=== PATIENT | female | born 1975 | race Caucasian/White ===

== ENCOUNTER → 2017-10-03 08:16 | Outpatient (CLI) | payer OTHER, SELFPAY ==
--- NOTE | 2017-10-03 08:29 | XR_ITS ---
XR shoulder RT min 2V HISTORY: Posttraumatic pain ITS.REASON: RT SHOULDER PAIN ORDERING PHYSICIAN: Meliza Liriano PATIENT AGE: 42 years COMPARISON: None FINDINGS: No fracture or dislocation. No lytic or blastic change. There is normal mineralization. The joint spaces are well-preserved. No significant degenerative/arthritic changes. No erosive changes evident. IMPRESSION: Negative, no acute finding
== END ==
PROVIDERS: PCP Family Medicine; Visit Provider Nurse Practitioner Family
DX: M25.511 Pain in right shoulder (principal)
CPT/HCPCS: 73030

== ENCOUNTER 2017-10-04 16:00 | Outpatient (RCR) | payer OTHER, SELFPAY | END 2017-10-11 15:36 | disposition home or self-care (01) | LOC: PT 16:00 | PROVIDERS: Family Provider Family Medicine; PCP Family Medicine; Visit Provider Nurse Practitioner Family | DX: M25.511 Pain in right shoulder (principal) | CPT/HCPCS: 97110 ==

== ENCOUNTER → 2018-01-24 13:11 | Outpatient (CLI) | payer OTHER, SELFPAY ==
--- NOTE | 2018-01-24 13:22 | CT_ITS ---
CT abdomen pelvis wo con CLINICAL INDICATION: ITS.REASON: FLANK PAIN,RENAL COLIC ORDERING PHYSICIAN: Meliza Liriano PATIENT AGE: 43 years COMPARISON: None TECHNIQUE: Axial images obtained with sagittal and coronal reformats. All CT scans at the facility use one or more dose reduction, viz: automated exposure control; ma/kV adjustment per patient size (including targeted exams where dose is matched to indication; i.e. head); or iterative reconstruction technique. PROCEDURE: Oral Contrast: None IV Contrast: None . FINDINGS: Lung bases are clear. There are multiple isodense hepatic lesions the largest is in the right hepatic lobe at segment 7 laterally measuring 3.2 x 2.6 cm. This lesion has a small area of slight increased density anteriorly. There is an additional smaller lesion at 2.8 cm in the central aspect of the left hepatic lobe at segment 4A. An additional 13 mm isodense is present more superior to this at the hepatic dome. A 9 mm isodense is present in segment 1 and one also in segment IVb at 11 mm. These are nonspecific and could be related to multiple benign lesions or metastatic disease. Suggest follow-up liver CT with hemangioma protocol. The spleen, adrenal glands, and pancreas have an unremarkable unenhanced CT appearance. No renal or ureteral calculi. No hydronephrosis. Isodense is present involving the posterior aspect of the right kidney and may be due to small cyst. Reported prior appendectomy. Prior hysterectomy. No pelvic mass or abnormal fluid collection or focal inflammatory change evident. No evidence of diverticulitis. There are mild degenerative changes of the hips. IMPRESSION: 1. No acute abdominal or pelvic findings. 2. No renal or ureteral calculi. No hydronephrosis 3. Multiple liver lesions as described above. Suggest further characterization with CT with hemangioma protocol.
== END ==
PROVIDERS: PCP Nurse Practitioner Family; Visit Provider Nurse Practitioner Family
DX: N23 Unspecified renal colic (principal)
CPT/HCPCS: 74176

== ENCOUNTER → 2018-02-01 08:17 | Outpatient (CLI) | payer OTHER, SELFPAY ==
--- NOTE | 2018-02-01 08:23 | CT_ITS ---
CT abdomen w con CLINICAL INDICATION: Follow-up liver lesions ITS.REASON: LIVER MASS ORDERING PHYSICIAN: Meliza Liriano PATIENT AGE: 43 years COMPARISON: 01/24/2018 TECHNIQUE: Hemangioma protocol. 30 seconds, 60 seconds, 5 minute, 10 minute delayed images obtained with contrast Axial images obtained with sagittal and coronal reformats. All CT scans at the facility use one or more dose reduction, viz: automated exposure control; ma/kV adjustment per patient size (including targeted exams where dose is matched to indication; i.e. head); or iterative reconstruction technique. PROCEDURE: Oral Contrast: None IV Contrast: 75 mL's Isovue-370. FINDINGS: Multiple liver lesions are once again noted. There are at least 4 lesions appear one in the hepatic dome centrally at 13 mm. A second lesion is in the lateral aspect of lateral segment left hepatic lobe at 16 mm. A third lesion is present in the central aspect of the liver in the portal area at 2.2 x 1.8 cm. The largest lesion is in the posterior segment of the right hepatic lobe at 2.8 cm. These lesions all demonstrate isointensity on the arterial phase images and are slightly hypointense to the liver on the subsequent portal phase and delayed images. They do not demonstrate typical appearance of hemangiomas.. There is mild enlargement of the right adrenal gland measuring 17 mm and may be due to an adenoma. The spleen, left adrenal gland, pancreas, and kidneys have an unremarkable appearance. IMPRESSION: Multiple hepatic lesions as described above. These do not demonstrate typical enhancement pattern for hemangiomas. Differential diagnosis therefore includes hepatic metastasis, multifocal hepatocellular carcinoma, focal nodular hyperplasia, and hepatic adenomas. Does the patient have a history of primary malignancy? Does the patient have older CTs at another institution? MRI of the liver may provide further evaluation. Fine-needle aspiration ultimately may be needed for definitive diagnosis.
--- NOTE | 2018-02-01 08:24 | XR_ITS ---
XR chest 2V HISTORY: Smoker, liver lesion ITS.REASON: TOBACCO USE ORDERING PHYSICIAN: Meliza Liriano PATIENT AGE: 43 years COMPARISON: None FINDINGS: The cardiomediastinal silhouette and pulmonary vascularity are within normal limits. The lungs are clear without infiltrates, suspicious nodules, or pleural effusions. There is calcified granuloma in the left mid to lower lung zone No acute bony abnormalities. IMPRESSION: Old granulomatous disease, no acute finding
== END ==
PROVIDERS: Family Provider Family Medicine; PCP Nurse Practitioner Family; Visit Provider Nurse Practitioner Family
DX: D37.6 Neoplasm of uncertain behavior of liver, gallbladder and bile ducts (principal)
CPT/HCPCS: 71046; 74160; Q9967

== ENCOUNTER → 2018-02-23 08:06 | Outpatient (CLI) | payer OTHER, SELFPAY ==
--- NOTE | 2018-02-23 08:30 | MM_ITS ---
MM Dig screening mamm BI w/CAD CAD Screening COMPARISON: Digital mammograms with CAD 02/18/2015 and 12/30/2016 INDICATION: Is a history of breast cancer patient maternal grandmother and maternal aunt both diagnosed after menopause TECHNIQUE: Standard CC and MLO images were obtained. R2 CAD reviewed. FINDINGS: Moderate diffuse fibro-glandular densities are seen in both breasts. Findings of the lateral symmetrical. There is no suspicious lesion and there are no suspicious microcalcifications. IMPRESSION: Fibrofatty parenchyma no suspicious lesion seen BI-RADS Category: 1 Negative RECOMMENDED FOLLOW-UP: 1YR - 1 YEAR FOLLOW-UP (A letter has been sent to the patient regarding results of the study.)
== END ==
PROVIDERS: Family Provider Family Medicine; PCP Nurse Practitioner Family; Visit Provider Nurse Practitioner Family
DX: Z12.31 Encounter for screening mammogram for malignant neoplasm of breast (principal)
CPT/HCPCS: 77067

== ENCOUNTER → 2020-04-06 12:55 | Outpatient (CLI) | payer OTHER, MEDICAID, SELFPAY ==
--- NOTE | 2020-04-06 13:03 | MM_ITS ---
PROCEDURE: MM DIG SCREENING MAMM BI W/CAD Digital Breast Tomosynthesis Included CLINICAL INDICATION: SCREENING There is a history of breast cancer patient's maternal aunt and maternal grandmother both diagnosed after menopause. There has been a previous biopsy left breast for benign disease. COMPARISON: MG [facility]B DIG MAMM-SCREEN KAREN from 02/18/2015 MG DMSB DIG MAMM-SCREEN KAREN W/CAD from 12/30/2016 MG [facility] MM Dig screening mamm BI w/CAD from 02/23/2018 TECHNIQUE: Standard CC and MLO images and 3D Tomosynthesis was obtained. R2 CAD reviewed. FINDINGS: Moderate scattered fibroglandular densities are seen in both breast centrally and upper outer quadrants. There is a benign-appearing microcalcification right breast and a biopsy clip left breast. There is no suspicious lesion in either breast and no suspicious microcalcifications. IMPRESSION: Stable exam with fibrofatty parenchyma and no suspicious lesions seen BI-RAD Category: 2 Benign Finding(s) FOLLOW-UP: 1YR 1 Year Follow-up (A letter has been sent to the patient regarding results of the study.) Dictated Dr. Kahlil Mcclellan MD 04/07/2020 10:27 Dr. Kahlil Contreras MD in [place] 04/07/2020 10:27
== END ==
PROVIDERS: PCP Nurse Practitioner Family; Visit Provider Nurse Practitioner Family
DX: Z12.31 Encounter for screening mammogram for malignant neoplasm of breast (principal)
CPT/HCPCS: 77063; 77067

== ENCOUNTER → 2021-03-10 14:53 | Outpatient (CLI) | payer OTHER, SELFPAY | PROVIDERS: Visit Provider Internal Medicine Gastroenterology | DX: Z20.822 Contact with and (suspected) exposure to COVID-19 (principal) | CPT/HCPCS: U0003 ==

== ENCOUNTER 2021-03-12 09:50 | Day surgery (SDC) | payer OTHER, SELFPAY ==
[2021-03-09 08:32] VITALS: BMI 33.9
[2021-03-12 10:24] VITALS: BP 112/68; PULSE 91; RESP 16; TEMP 36.7; O2SAT 98
--- NOTE | 2021-03-12 11:24 | P.PN_ITS ---
[facility] Anesthesia Checklist - Patient Identification Patient Identification: Arm Band - Structural Data Admitted From: Home Planned Operative Procedure/s: colonoscopy Consent for Planned Operative Procedure(s) Verified: Yes Verified Documents: Surgical Consent, History and Physical - NPO Status Verified Time NPO: 00:00 - Additional verifications Anesthesia Reactions: No - Airway Assessment C-Spine Mobility Assessed: Yes (mp2) TMJ Mobility Assessed: Yes Dentition: Good Dentition - Neurological Assessment Level of Consciousness: Awake, Alert - Anesthesia Plan Anesthesia Risk discussed: Yes Anesthesia Plan: Verified ASA Class: III Anesthesia Type: MAC [facility] History I have reviewed the patient's past medical history: Yes Medical History: Reports:: Lung Disease (lore) Denies:: Cancer, Diabetes Mellitus Type 1, Diabetes Mellitus Type 2, MRSA, Seizures *Have you ever received a pneumonia vaccine?: No *Have you received a flu vaccine this season?: Yes Other Medical History: Reports: Hypothyroidism, Liver Disease, Other Anesthesia experience/problems:: nac Other Surgeries: Yes: Other Amputation: No Fractures: No - *Social History Last grade of school completed: High school graduate Smoking Status: Current every day smoker Tobacco Type: cigarettes # Packs/Day (cigarettes): 2 Alcohol Intake: current Alcohol Intake Frequency:: holidays/special occasions only Substance Use Type: denies use *Occupational Status:: employed *Travel in the last 8 weeks: None Family Hx:: Hypertension, Cancer, Diabetes
--- NOTE | 2021-03-12 11:37 | HMH.PROC ---
[facility] Procedure Note Procedure Note:: Colonoscopy Procedure Report: Colonoscopy with cold snare polypectomy Endoscopist: Douglas Shepherd II, MD Referring physician: VERA Nagy Date of Procedure: March 12, 2021 Equipment: Olympus 190 variable stiffness pediatric colonoscope Sedation: MAC sedation Indication: Mrs. Garcia is a 46-year-old female who is here for follow-up surveillance colonoscopy secondary to a personal history of colon polyps. She did have a colonoscopy in January 2017 (Dr. Pepe Dejesus M.D.) and had adenomatous polyps removed. The patient did have a CAT scan that showed multiple isodense hepatic lesions that measured up to 3 cm in segment 7 of the right liver.. At that time, they were deemed benign. The patient does have some chronic constipation which is unchanged. She does state that her maternal grandfather had colon cancer in his 70s. She reports no abdominal pain, weight loss or rectal bleeding. Procedure: Prior to the procedure, a history and physical exam was performed, and patient's medications and allergies were reviewed. The risks, benefits and alternatives of the sedation and procedure were discussed with the patient. All questions were answered and informed consent was obtained. The patient was brought to the procedure room. Patient identification and proposed procedure were verified by the physician and the nurse. The patient was placed in a left lateral decubitus position and the scope was passed under direct vision. Throughout the procedure, the patient's blood pressure, pulse, and oxygen saturations were monitored continuously. The colonoscopy was accomplished without difficulty. The patient tolerated the procedure well. Findings: On digital rectal examination there was normal rectal tone. There were no external hemorrhoids. The colonoscope was introduced through the anal canal to the rectum and advanced to the cecum. The ileocecal valve and appendiceal orifice were identified. The scope was advanced a short distance into the ileum which appeared grossly normal. The scope was then withdrawn into the colon. The cecum, ascending, transverse, descending and sigmoid colon were grossly normal. Within the rectum, there were 2 diminutive colon polyps that were removed via cold snare polypectomy. Upon retroflexion within the rectum there were grade 1-2 internal hemorrhoids.The preparation was excellent throughout with Delevan Preparation Score of 9. The cecal time was 12 minutes. Impression: 1. Diminutive rectal polyps x2 (rule out hyperplastic polyps) 2. Grade 1-2 internal hemorrhoids Plan: Based upon the patient's personal history of adenomatous polyps and family history, I would continue surveillance at a 5-year interval. I would encourage a fiber bowel regimen on a long-term daily maintenance basis.
[2021-03-12 11:40] VITALS: BP 98/60; PULSE 88; RESP 18; TEMP 36.1; O2SAT 99
[2021-03-12 11:50] VITALS: BP 104/68; PULSE 86; RESP 18; O2SAT 99
[2021-03-12 12:00] VITALS: BP 112/77; PULSE 83; RESP 18; O2SAT 99
[2021-03-12 12:10] VITALS: BP 126/68; PULSE 83; RESP 18; O2SAT 99
[2021-03-12 12:38] VITALS: O2SAT 97
== END 2021-03-12 12:15 | disposition home or self-care (01) ==
LOC: OUTP 09:51
PROVIDERS: PCP Nurse Practitioner Family; Visit Provider Internal Medicine Gastroenterology
PROC: 0DJD8ZZ Inspection of Lower Intestinal Tract, Via Natural or Artificial Opening Endoscopic (ICD-10-PCS; CPT 45378; principal; 2021-03-12 11:00)
DX: Z12.11 Encounter for screening for malignant neoplasm of colon (principal); Z86.010 Personal history of colon polyps; K62.1 Rectal polyp; K64.0 First degree hemorrhoids; E03.9 Hypothyroidism, unspecified; G47.33 Obstructive sleep apnea (adult) (pediatric); K76.9 Liver disease, unspecified; Z72.0 Tobacco use; Z82.49 Family history of ischemic heart disease and other diseases of the circulatory system; Z83.3 Family history of diabetes mellitus
CPT/HCPCS: 45385

== ENCOUNTER → 2021-05-28 14:49 | Outpatient (CLI) | payer OTHER, SELFPAY ==
--- NOTE | 2021-05-28 14:54 | MM_ITS ---
PROCEDURE INFORMATION: Exam: MG Bilateral Screening 3D Mammography Exam date and time: 05/28/2021 2:54 PM Age: 46 years old Clinical indication: Encounter for screening mammogram for malignant neoplasm of breast . Family history of breast carcinoma. TECHNIQUE: Imaging protocol: Bilateral screening tomosynthesis and 2D mammography including computer-aided detection (CAD) when performed. COMPARISON: 1. MG MM DIG SCREENING MAMM BI W/CAD 04/06/2020 1:09 PM 2. MG [facility] MM Dig screening mamm BI w/CAD 02/23/2018 8:19 AM 3. MG DMSB DIG MAMM-SCREEN KAREN W/CAD 12/30/2016 10:44 AM FINDINGS: MAMMOGRAPHY: Breast composition: The breasts are heterogeneously dense, which may obscure small masses. Mass: No new suspicious masses. Architectural distortion: No suspicious distortion. Calcifications: No suspicious calcifications. Asymmetric density: None. Skin thickening: None. Axillary adenopathy: None. IMPRESSION: No mammographic evidence of malignancy. Annual screening is recommended unless otherwise clinically indicated. ASSESSMENT: BI-RADS Category 1: Negative
== END ==
PROVIDERS: PCP Nurse Practitioner Family; Visit Provider Nurse Practitioner Family
DX: Z12.31 Encounter for screening mammogram for malignant neoplasm of breast (principal)
CPT/HCPCS: 77063; 77067

== ENCOUNTER → 2022-10-07 10:26 | Outpatient (CLI) | payer BC, SELFPAY ==
--- NOTE | 2022-10-07 10:32 | MM_ITS ---
PROCEDURE INFORMATION: Exam: MG Bilateral Screening 3D Mammography Exam date and time: 10/07/2022 10:30 AM Age: 47 years old Clinical indication: Screening examination TECHNIQUE: Imaging protocol: Bilateral Screening tomosynthesis and 2D mammography including computer-aided detection (CAD) when performed. COMPARISON: 1. MG MM DIG SCREENING MAMM BI W/CAD 05/28/2021 3:07 PM 2. MG MM DIG SCREENING MAMM BI W/CAD 04/06/2020 1:09 PM 3. MG [facility] MM Dig screening mamm BI w/CAD 02/23/2018 8:19 AM 4. MG DMSB DIG MAMM-SCREEN KAREN W/CAD 12/30/2016 10:44 AM FINDINGS: MAMMOGRAPHY: Breast composition: The breast is heterogeneously dense, which may obscure small masses. Mass: Stable benign-appearing subcentimeter nodules are present in the left breast. No new or morphologically suspicious nodule has developed to suggest malignancy. Architectural distortion: No new or suspicious architectural distortion. Calcifications: No new or suspicious calcifications are present Asymmetric density: No new or suspicious asymmetric density is present Skin thickening: None. Axillary adenopathy: None. IMPRESSION: No mammographic evidence of malignancy. Recommend annual screening mammography unless otherwise clinically indicated. ASSESSMENT: BI-RADS category 2: Benign
== END ==
PROVIDERS: PCP Nurse Practitioner Family; Visit Provider Nurse Practitioner Family
DX: Z12.31 Encounter for screening mammogram for malignant neoplasm of breast (principal)
CPT/HCPCS: 77063; 77067

== ENCOUNTER 2023-10-03 11:24 | Emergency (ER) | payer BC, SELFPAY ==
[2023-10-03 11:25] VITALS: BP 134/81; PULSE 83; RESP 15; TEMP 37; O2SAT 97; BMI 36.2
--- NOTE | 2023-10-03 11:55 | CT_ITS ---
FINAL REPORT CLINICAL HISTORY: concern for R stone COMPARISON: 01/24/2018 FINDINGS: Axial CT images of the abdomen and pelvis were obtained without intravenous contrast. Coronal and sagittal reformatted images were also obtained.This study was performed with techniques to keep radiation doses as low as reasonably achievable (ALARA). Individualized dose reduction techniques using automated exposure control or adjustment of mA and/or kV according to the patient's size were employed. Abdomen:The lung bases are clear. There is a 3 mm nonobstructing left renal stone present. No evidence of hydronephrosis is seen. There are 3 low-attenuation hepatic masses, which cannot be accurately characterized without intravenous contrast. These masses were seen on the prior CT of 2018 and/or stable in size. There is a 25 mm low-attenuation right adrenal mass, slightly larger than the prior exam of 2018, likely a adenoma. The liver, spleen and pancreas have an unremarkable, unenhanced appearance. No inflammatory process is identified. Pelvis: Images of the pelvis reveal no evidence of ureteral dilation or ureteral stone.No mass or abnormal fluid collection is identified. Mild vascular calcifications are identified. The appendix is not visualized. The uterus has been surgically resected. IMPRESSION: No renal or ureteral stone, or hydronephrosis. There are 3 low-attenuation hepatic masses, not accurately characterized without intravenous contrast, but which are stable in appearance or slightly decreased in size since the prior CT of 2018, likely benign. Follow-up with hepatic protocol CT or MRI might be helpful if clinically indicated. 25 mm low-attenuation in the right adrenal gland, slightly larger than noted on the prior CT, consistent in appearance with an adenoma. 3 mm nonobstructing left renal stone. No evidence of hydronephrosis is noted. Reviewed, Interpreted and Dictated by Parvez Restrepo III, MD Transcribed by Leanne Campbell Authenticated and . [facility]
[2023-10-03 11:59] LABS: Microscopic, Urine URINE MICROSCOPIC (MICROSCOPIC)
[2023-10-03 12:05] LABS: Basophils # 0.1 K/mm3 (0-0.2); Basophils % 0.9 % (0.1-2.0); Eosinophils # 0.1 K/mm3 (0.0-0.4); Eosinophils % 1.3 % (0.1-12.0); Hematocrit 41.6 % (37.0-47.0); Hemoglobin 14.2 g/dL (12.2-16.2); Lymphocytes # 2.3 K/mm3 (0.7-4.5); Lymphocytes % 23.7 % (10-50); Mean Corpuscular HGB Conc 34.2 g/dL (31.8-35.4); Mean Corpuscular Hemoglobin 31.3 pg (27.0-31.2); Mean Corpuscular Volume 91.5 fl (81-99); Monocytes # 0.4 K/mm3 (0.1-1.0); Monocytes % 4.5 % (1.7-9.3); Neutrophils # 6.7 K/mm3 (1.8-7.8); Neutrophils % 69.7 % (37.0-80.0); Platelet Count 242 K/mm3 (142-424); Red Blood Count 4.54 M/mm3 (4.20-5.40); Red Cell Distribution Width 13.6 % (11.5-17.5); White Blood Count 9.6 K/mm3 (4.8-10.8)
[2023-10-03] MEDS: MORPHINE 4MG/ML SYRINGE 4 MG IV (12:10)
[2023-10-03] MEDS: KETOROLAC 30MG/ML VIAL 15 MG IV (12:11)
[2023-10-03 12:13] LABS: Alanine Aminotransferase 21 U/L (12-78); Albumin Level 4.4 g/dl (3.5-5.0); Albumin/Globulin Ratio 1.6 (1.1-1.8); Alkaline Phosphatase 88 U/L (38-126); Aspartate Amino Transferase 25 U/L (14-36); Bilirubin,Total 0.4 mg/dl (0.2-1.3); Blood Urea Nitrogen 12 mg/dl (7-17); Calcium 9.1 mg/dl (8.4-10.2); Carbon Dioxide 30 mmol/L (22.0-30.0); Chloride 100 mmol/L (98-107); Creatinine Clearance Estimated 131 mL/min (50-200); Estimated Glomerular Filt Rate 76 ml/min (>60); GFR (African American) 92 ML/MIN (>60); Globulin 2.7 g/dL (1.3-3.2); Glucose 101 mg/dl (74-100); Sodium 137 mmol/L (136-145); Total Protein,Serum 7.1 g/dl (6.3-8.2)
[2023-10-03 12:18] LABS: Appearance,Urine CLEAR (Clear); Bilirubin,Urine Negative (Negative); Blood, Urine 1+ (Negative); Color,Urine YELLOW (Yellow); Glucose,Urine (UA) Negative (Negative); Ketones,Urine Negative (Negative); Leukocyte Esterase,Urine Negative (Negative); Nitrate,Urine Negative (Negative); Protein,Urine Negative (Negative); Specific Gravity, Urine <= 1.005 (1.005-1.030); Urobilinogen,Urine 0.2 EU/dl (0.2)
--- NOTE | 2023-10-03 12:40 | HMH.EDGENADL ---
Discharge Plan Disposition Patient Disposition: Home, Self-Care Prescriptions Prescriptions: New valacyclovir 1 gram tablet 1,000 mg PO Q8H 10 Days Qty: 30 0RF dexamethasone 6 mg tablet 6 mg PO DAILY 5 Days Qty: 5 0RF No Action meloxicam 15 MG tablet 15 mg PO DAILY levothyroxine 50 MCG tablet 50 mcg PO DAILY cholecalciferol (vitamin D3) 1,250 MCG capsule 50,000 unit PO DAILY Referrals Follow up/Referrals: Meliza Liriano [Primary Care Provider] - See instructions Activity Restrictions/Add. Instructions Additional Instructions/Restrictions: Call your family doctor to establish care for this visit to the emergency department and schedule follow-up within 48 hours to ensure improvement. If you have any worsening of your condition or any other concerning signs or symptoms, return to the emergency department or your primary care doctor for further evaluation. Decadron daily for the next 5 days. If you develop shingles looking rash in the area, take valacyclovir as prescribed starting as soon as possible. Clinical Impressions Clinical Impression: Radiculopathy Instructions Patient Instructions: DI for Acute Abdominal Pain Discharge ED Provider: Ken Jones General Adult HPI General Chief complaint: Abdominal Pain Stated complaint: back and adominal pain Time Seen by Provider: 10/03/23 11:28 Mode of Arrival: Ambulatory Source of Information: Patient Limitations: No Limitations Description of Symptoms (Recalled from ER Triage Doc. by RN): pt presents to ED with c/o abdominal pain and back pain. both located on right side. pt with known kidney stone on right side. pt was scheduled for outpt ct scan but unable to get one until later in [facility]. History of Present Illness HPI narrative: 48-year-old female no relevant medical history presenting with right flank pain. Patient states that she started having flank pain 1 week ago today. Since that time, she went to be seen with outpatient x-ray, was diagnosed with kidney stone and sent home with Toradol and Flomax. Patient has had significant pain since that time, Monday. Now it is moderate to severe in intensity, made worse with sitting down, made better standing up and pacing around. Patient unable to sleep, nauseated without vomiting, no fevers or chills, hematuria, or any other concerns. Was supposed to have outpatient CT scan done, but unable to get one scheduled and presented fracture help. Related Data Home Medications Medication Instructions Recorded Confirmed cholecalciferol (vitamin D3) 1,250 50,000 unit PO DAILY Supplement 03/09/21 03/09/21 mcg (50,000 unit) capsule levothyroxine 50 mcg tablet 50 mcg PO DAILY HYPOTHYROIDISM 03/09/21 03/09/21 meloxicam 15 mg tablet 15 mg PO DAILY * 03/09/21 03/09/21 Previous Rx's Medication Instructions Recorded dexamethasone 6 mg tablet 6 mg PO DAILY 5 days #5 tabs 10/03/23 valacyclovir 1 gram tablet 1,000 mg PO Q8H 10 days #30 tabs 10/03/23 Allergies Allergy/AdvReac Type Severity Reaction Status Date / Time No Known Drug Allergies Allergy Unknown Verified 03/09/21 08:38 [NKDA] [facility] Disclaimer: The information contained in this section may have been updated after the patient was seen, as this information can be updated by other users. Social History Smoking Status: Current every day smoker tobacco type: cigarettes packs per day: 2 alcohol intake: current substance use type: denies use current occupational status: employed Travel in the last 8 weeks: None caffeine: Yes ROS Obtained: Yes All systems reviewed & no additional complaints except as documented Physical Exam General General appearance: alert and in no apparent distress Head Head exam: atraumatic and normocephalic Eye Eye exam: Present normal appearance, PERRL and EOMI ENT ENT exam: Present mucous membranes moist Neck Neck exam: Present normal inspection, full ROM and trachea midline Respiratory Respiratory exam: Absent respiratory distress, wheezes, stridor, accessory muscle use or prolonged expiratory phase Cardiovascular Cardiovascular exam: Present normal rhythm Abdominal Exam Abdominal exam: Present soft; Absent distention, tenderness, guarding, rebound or rigidity Extremities Exam Extremities exam: Absent edema Back Exam Back exam: Present CVA tenderness (R); Absent CVA tenderness (L) or muscle spasm Neurological Exam Neurological exam: Present alert, oriented X3, CN II-XII intact and normal gait; Absent motor sensory deficit Skin Skin exam: Present warm and dry; Absent diaphoresis or erythema Medical Decision Making Medical Records Medical records reviewed: Yes I reviewed the patient's medical records. Karthik Inquiry Pt receiving controlled substance: No Karthik was queried for this patient: No Vital Signs: 10/03/23 11:25 Temperature 98.6 F Temperature Source Oral Pulse Rate [Left Radial] 83 Respiratory Rate 15 Blood Pressure [Right Arm] 134/81 Blood Pressure Mean [Right Arm] 98 02 Sat by Pulse Oximetry 97 Lab Data Lab Results 10/03/23 11:37: Urine Color Yellow, Urine Appearance Clear, Urine pH 7.0, Ur Specific [place] <= 1.005, Urine Protein Negative, Urine Glucose (UA) Negative, Urine Ketones Negative, Urine Blood 1+, Urine Nitrate Negative, Urine Bilirubin Negative, Urine Urobilinogen 0.2, Ur Leukocyte Esterase Negative, Urine RBC Occasional, Urine WBC 3-5, Ur Squamous Epith Cells 5-10, Urine Bacteria Trace 10/03/23 11:43: WBC 9.6, RBC 4.54, Hgb 14.2, Hct 41.6, MCV 91.5, MCH 31.3 H, MCHC 34.2, RDW 13.6, Plt Count 242, MPV 9.0, Neut % (Auto) 69.7, Lymph % (Auto) 23.7, [place] % (Auto) 4.5, Eos % (Auto) 1.3, Baso % (Auto) 0.9, Neut # (Auto) 6.7, Lymph # (Auto) 2.3, [place] # (Auto) 0.4, Eos # (Auto) 0.1, Baso # (Auto) 0.1, Sodium 137, Potassium 4.0, Chloride 100, Carbon Dioxide 30, Anion Gap 11.0, BUN 12, Creatinine 0.80, Estimated Creat Clear 131, Estimated GFR 76, Est GFR ( Amer) 92, Glucose 101 H, Calcium 9.1, Total Bilirubin 0.4, AST 25, ALT 21, Alkaline Phosphatase 88, Total Protein 7.1, Albumin 4.4, Globulin 2.7, Albumin/Globulin Ratio 1.6 10/03/23 11:43 10/03/23 11:43 Orders (Tests/Meds): ED MEDICATIONS Discontinued Medications Generic Name Dose Route Start Last Admin Trade Name Chinq PRN Reason Stop Dose Admin Ketorolac Tromethamine 15 mg 10/03/23 11:55 10/03/23 12:11 Ketorolac 30mg/Ml Vial IV 10/03/23 11:56 15 mg ONCE ONE Administration Morphine Sulfate 4 mg 10/03/23 11:55 10/03/23 12:10 Morphine 4mg/Ml Syringe IV 10/03/23 11:56 4 mg ONCE ONE Administration ORDERS Category Date Time Status CT abdomen pelvis wo con Stat Cat Scan 10/03/23 11:55 Completed CBC w/Auto Diff [Complete Blood Count Auto Diff] Stat Lab 10/03/23 11:43 Completed CMP [Comprehensive Metabolic Panel] Stat Lab 10/03/23 11:43 Completed UA [Urinalysis and Microscopic] Stat Lab 10/03/23 11:37 Completed Medical Decision Narrative: 48-year-old female no relevant medical history presenting with right flank pain. Patient states that she started having flank pain 1 week ago today. Since that time, she went to be seen with outpatient x-ray, was diagnosed with kidney stone and sent home with Toradol and Flomax. Patient has had significant pain since that time, Monday. Now it is moderate to severe in intensity, made worse with sitting down, made better standing up and pacing around. Patient unable to sleep, nauseated without vomiting, no fevers or chills, hematuria, or any other concerns. Was supposed to have outpatient CT scan done, but unable to get one scheduled and presented fracture help. History was obtained via conversation with patient. On arrival, patient hemodynamically stable, alert, oriented x4, appropriate, GCS 15, moving all extremities spontaneously, pupils equal and reactive to light. Full physical exam performed and significant for relatively uncomfortable appearing woman who is in no acute distress. Tearful, holding her right flank, walking around the room. Unable to sit down. Flank tenderness on exam, no evidence of peritonitis or abdominal pain. Differential includes pyelonephritis, nephrolithiasis, ureterolithiasis, hydronephrosis, septic stone, ovarian cyst, appendicitis, cholecystitis, among others. Patient was given Toradol, morphine IV for symptomatic management and correction of underlying abnormalities. Workup independently interpreted and significant for microscopic hematuria, no evidence of infection. Nonactionable chemistry. Patient CT abdomen pelvis without acute abnormality. See radiology read for full review of final results. On reevaluation, patient still with discomfort. Patient describing the pain now as sharp, radiating around the outside of her body, more descriptive of neurogenic pain. Given patient presentation, workup, history, this most likely represents radiculopathy. Because patient has recent shingles contact and representing radiculopathic pain, conversation was had with patient regarding Valcyte, she is agreeable to this being sent to the pharmacy. Because patient at baseline without signs or symptoms of clinical decompensation, deemed appropriate for discharge. Results were relayed to patient who voiced understanding and were agreeable to outpatient management and follow up. At the time of discharge the patient was hemodynamically stable, tolerating PO, and mobilizing appropriately. Critical Care Critical Care Time Critical Care Time: No
[2023-10-03 12:44] LABS: Bacteria,Urine Trace /lpf; RBC,Urine Occasional #/hpf (0-3)
--- NOTE | 2023-10-03 12:49 | PC.NURSE ---
rounded on pt was given a pillow and turned light of per pt request, visitor and call light at bs
[2023-10-03 15:07] VITALS: BP 125/88; PULSE 74; RESP 16; TEMP 36.7
== END 2023-10-03 15:09 | disposition home or self-care (01) ==
PROVIDERS: Emergency Provider Emergency Medicine; PCP Nurse Practitioner Family
DX: R10.9 Unspecified abdominal pain (principal); M54.10 Radiculopathy, site unspecified; M54.9 Dorsalgia, unspecified; F17.210 Nicotine dependence, cigarettes, uncomplicated
CPT/HCPCS: 74176; 80053; 81001; 85025; 96374; 96375; 99285

== ENCOUNTER 2023-10-09 15:28 | Outpatient (CLI) | payer BC, SELFPAY ==
--- NOTE | 2023-10-09 15:31 | MM_ITS ---
PROCEDURE INFORMATION: Exam: MG Bilateral Screening 3D Mammography Exam date and time: 10/09/2023 3:22 PM Age: 48 years old Clinical indication: Screening examination . Family history of breast carcinoma. TECHNIQUE: Imaging protocol: Bilateral Screening tomosynthesis and 2D mammography including computer-aided detection (CAD) when performed. COMPARISON: 1. MG MM DIG SCREENING MAMM BI W/CAD 10/07/2022 10:30 AM 2. MG MM DIG SCREENING MAMM BI W/CAD 05/28/2021 3:07 PM 3. MG MM DIG SCREENING MAMM BI W/CAD 04/06/2020 1:09 PM FINDINGS: MAMMOGRAPHY: Breast composition: The breasts are heterogeneously dense, which may obscure small masses. Mass: No suspicious masses. Architectural distortion: No suspicious distortion. Calcifications: No suspicious calcifications. Asymmetric density: None. Skin thickening: None. Axillary adenopathy: None. IMPRESSION: 1. No mammographic evidence of malignancy. Annual screening is recommended unless otherwise clinically indicated. 2. Given the reported risk factors for this patient, a breast cancer risk assessment may prove useful for further evaluation. ASSESSMENT: BI-RADS Category 1: Negative
== END 2023-10-09 23:59 ==
LOC: RAD 15:28
PROVIDERS: PCP Nurse Practitioner Family; Visit Provider Nurse Practitioner Family
DX: Z12.31 Encounter for screening mammogram for malignant neoplasm of breast (principal)
CPT/HCPCS: 77063; 77067

== ENCOUNTER 2024-08-31 18:02 | Emergency (ER) | payer BC, SELFPAY ==
[2024-08-31 19:20] VITALS: BP 132/78; PULSE 73; RESP 19; TEMP 36.7; O2SAT 96; BMI 39.1
--- NOTE | 2024-08-31 19:38 | ED_ITS ---
Discharge Plan Disposition Patient Disposition: Home, Self-Care Condition: Good Prescriptions Prescriptions: New cefdinir 300 mg capsule 300 mg PO BID Qty: 20 0RF albuterol sulfate 90 mcg/actuation HFA aerosol inhaler 2 puff inhalation Q4-6H PRN (Reason: shortness of breath or wheezing) Qty: 8.5 0RF guaifenesin [Mucinex] 1,200 mg tablet extended release 12hr 1,200 mg PO Q12H PRN (Reason: congestion) Qty: 20 0RF azithromycin [Zithromax Z-Jaime] 250 mg tablet See Rx Instructions .ROUTE .COMPLEX 5 Days Qty: 6 0RF Rx Instructions: For 250 mg dose pack: take 500 mg today (day 1), then 250 mg for 4 days (days 2-5) prednisone 20 mg tablet 20 mg PO BID 5 Days Qty: 10 0RF benzonatate 100 mg capsule 100 mg PO TID PRN (Reason: cough) Qty: 30 0RF No Action fluoxetine [Prozac] 40 mg Capsule 40 mg PO DAILY meloxicam [Mobic] 15 mg Tablet 15 mg PO DAILY bisoprolol fumarate 5 mg Tablet 5 mg PO DAILY levothyroxine [Synthroid] 50 mcg Tablet 50 mcg PO DAILY bupropion HCl [Wellbutrin] 75 mg Tablet 75 mg PO TID Rx Instructions: administer 6 hours apart Referrals Follow up/Referrals: Meliza Liriano [Primary Care Provider] - See instructions Activity Restrictions/Add. Instructions Additional Instructions/Restrictions: * Start antibiotic tomorrow. Be sure to complete entire prescription even if feeling better * Monitor temp. Tylenol every 4 hours as needed and / or ibuprofen every 6 hours as needed ( As long as your primary care physician has told you that it ok to take both. For fever/aches/pains ER if no less than 101 despite Tylenol or Motrin * Humidifier/vaporizer or hot steamy shower * Inhaler every 4-6 hours as needed like we discussed. If unsure how to use it, ask pharmacist to demonstrate how. Should help open airways and improve cough, wheezing, and shortness of breath * Mucinex during the day for your cough and cough suppressant only at night. Be sure to drink lots of water. Insurance may not cover a prescriptions for mucinex. Might be cheaper to get 400mg tablets and take 2 tablet in the morning, mid-day and evening with lots of water. *Tessalon Perles will not cause drowsiness but use at bedtime to help stop cough so that you may get some rest. *Start Prednisone tomorrow. Helps with inflammation therefore, cough and wheezing. Follow directions on the package. Reviewed side effects. Patient reports taking them before. Follow up IMMEDIATELY for new or worsening of symptoms OR no noticeable im provement over the next 48-72 hours. 911 immediately for any life threatening symptoms such as chest pain or difficulty breathing Clinical Impressions Clinical Impression: Bronchitis, Otitis media Stand Alone Forms Stand Alone Forms: Work/School Release Instructions Patient Instructions: Prednisone, Azithromycin, Cefdinir Print Language Print Language: Belarusian Discharge ED Provider: [address] [facility] [place] H[place] General Stated complaint: soa, cough, body aches, nausea, headache Mode of Arrival: Ambulatory Source of Information: Patient Limitations: No Limitations Time Seen by Provider: 08/31/24 19:38 Description of Symptoms (Recalled from Triage Doc. by RN): PATIENT C/O SOA, CO UGH, BODY ACHES, HEADACHE, AND NAUSEA X 6 DAYS HEENT Symptoms (Recalled from RN notes): Yes Resp Symptoms (Recalled from RN notes): Yes Skin Symptoms (Recalled from RN notes): No MS Symptoms (Recalled from RN notes): No Functional Status (Recalled from RN notes): WNL History of Present Illness Provider Complaint: Patient states that she has been sick for about a week with cough, chest congestion, sinus congestion and drainage, pain in her left ear and feeling tired and fatigued along with feeling SOA at times States she isnt coughing up much States that she is an everyday smoker and she has taken flu and covid test and they was negative States that she was worried she may be getting bronchitis or pneumonia Related Data Home Medications ?Medication ?Instructions ?Recorded ?Confirmed bisoprolol fumarate 5 mg tablet 5 mg PO DAILY 08/31/24 08/31/24 bupropion HCl 75 mg tablet 75 mg PO TID 08/31/24 08/31/24 fluoxetine 40 mg capsule (Prozac) 40 mg PO DAILY 08/31/24 08/31/24 levothyroxine 50 mcg tablet 50 mcg PO DAILY 08/31/24 08/31/24 (Synthroid) meloxicam 15 mg tablet 15 mg PO DAILY 08/31/24 08/31/24 Previous Rx's ?Medication ?Instructions ?Recorded albuterol sulfate 90 mcg/actuation 2 puff inhalation Q4-6H PRN 08/31/24 aerosol inhaler shortness of breath or wheezing #8.5 grams azithromycin 250 mg tablet See Rx Instructions PO .COMPLEX 5 08/31/24 (Zithromax Z-Jaime) days #6 tabs benzonatate 100 mg capsule 100 mg PO TID PRN cough #30 caps 08/31/24 cefdinir 300 mg capsule 300 mg PO BID #20 caps 08/31/24 guaifenesin 1,200 mg tablet, 1,200 mg PO Q12H PRN congestion 08/31/24 extended release 12 hr (Mucinex) #20 tabs prednisone 20 mg tablet 20 mg PO BID 5 days #10 tabs 08/31/24 Allergies Allergy/AdvReac Type Severity Reaction Status Date / Time No Known Drug Allergies Allergy Unknown Verified 03/09/21 08:38 (NKDA) Worker's Comp Is this a Worker's Comp case?: No [facility] Disclaimer: The information contained in this section may have been updated after the patient was seen, as this information can be updated by other users. Social History Smoking Status: Current every day smoker tobacco type: cigarettes packs per day: 2 alcohol intake: current alcohol intake frequency: holidays/special occasions o nly substance use type: denies use current occupational status: employed Travel in the last 8 weeks: None caffeine: Yes Have you lived/traveled outside [place] in past 30 days?: No Contact w/someone who lives/traveled outside [place] past 30 days?: No Exposure to someone with infectious disease in past 14 days?: No Do you have a fever (greater than 100.4 F or 38 C)?: No Have you tested positive for COVID-19: No Exposed to someone with COVID-19 in past 14 days?: No Do you have a sore throat?: No Do you have a cough?: Yes Do you have any weakness?: No Do you have any diarrhea?: No Are you experiencing any unusual bleeding?: No Do you have any muscle aches/pain?: Yes Do you have any abdominal pain?: No Are you experiencing loss of taste or smell?: No ROS Obtained: Yes All systems reviewed & no additional complaints except as documented and Yes Systems reviewed as appropriate & no additional complaints except as documented Constitutional Constitutional: Reports system reviewed and no additional complaints, except as documented, Reports as per HPI, Reports body ache, Reports chills, Reports fatigue and Reports headache(s) ENT Ears, Nose, Mouth, and Throat: Reports system reviewed and no additional complaints, except as documented, Reports as per HPI, Reports otalgia, Reports headache(s), Reports nasal congestion and Reports sinus pressure Cardiovascular Cardiovascular: Reports system reviewed and no additional complaints, except as documented and Reports as per HPI Respiratory Respiratory: Reports system reviewed and no additional complaints, except as documented, Reports as per HPI, Reports shortness of breath (at times), Reports chest congestion, Reports cough, Denies hemoptysis, Denies pain on inspiration, Denies pain with cough, Denies pain with breathing and Denies wheezing Gastrointestinal Gastrointestingal: Reports system reviewed and no additional complaints, except as documented and as per HPI Genitourinary Female Genitourinary: Reports system reviewed and no additional complaints, except as documented and Reports as per HPI Neurologic Neurologic: Reports headache(s) Endocrine Endocrine: Reports fatigue Allergic/Immunologic Allergic/Immunologic: Denies wheezing Physical Exam General General appearance: alert and in no apparent distress ENT ENT exam: Present mucous membranes moist Expanded ENT Exam TM/Canal exam: Left TM: erythema and bulging Nose exam: Present sinus tenderness Throat exam: Present other (PND noted) Respiratory Respiratory exam: Present normal lung sounds bilaterally; Absent respiratory distress or wheezes Cardiovascular Cardiovascular exam: Present regular rate, normal rhythm and normal heart sounds Abdominal Exam Abdominal exam: Present soft and normal bowel sounds; Absent distention or tenderness Neurological Exam Neurological exam: Present alert, oriented X3 and normal gait Medical Decision Making Medical Records Screening: Per USPSTF and CDC recommendations, given the prevalence of disease in our region, it is our hospital?s policy to screen for HIV and viral Hepatitis for all patients aged 18 and over and those with ongoing risk factors. Karthik Inquiry Pt receiving controlled substance: No Karthik was queried for this patient: No Vital Signs: 08/31/24 19:20 Temperature 98.1 F Temperature Source Oral Pulse Rate [Left Brachial] 73 Respiratory Rate 19 Blood Pressure [Left Arm] 132/78 Blood Pressure Mean [Left Arm] 96 Blood Pressure Source [Left Arm] Automatic Cuff Blood Pressure Position [Left Arm] Sitting 02 Sat by Pulse Oximetry 96 Oxygen Delivery Method Room Air Medical Decision Narrative: Discussed CXR patient did not want to wait, will cover with antibiotics Medication discussed with pharmacy
[2024-08-31] MEDS: LIDOCAINE 1% 5ML PF VIAL IM (20:05)
[2024-08-31] MEDS: cefTRIAXone 1GM VIAL 1 GM IM (20:05)
[2024-08-31] MEDS: METHYLPREDNISOLONE SOD SUCC 125MG VIAL 125 MG IM (20:05)
[2024-08-31 20:07] VITALS: BP 132/78; PULSE 73; RESP 19; TEMP 36.7; O2SAT 96
== END 2024-08-31 20:18 | disposition home or self-care (01) ==
PROVIDERS: Emergency Provider Nurse Practitioner; PCP Nurse Practitioner Family
DX: J20.9 Acute bronchitis, unspecified (principal); H66.92 Otitis media, unspecified, left ear
CPT/HCPCS: 96372; 99213; G0381; J0696; J2919

== ENCOUNTER 2024-12-04 07:00 | Day surgery (SDC) | payer BC, SELFPAY ==
[2024-11-29 10:44] VITALS: BMI 34.1
[2024-12-04 07:41] VITALS: BP 126/86; PULSE 68; RESP 18; TEMP 36.5; O2SAT 98
--- NOTE | 2024-12-04 07:52 | P.PNANES_ITS ---
[facility] Disclaimer: The information contained in this section may have been updated after the patient was seen, as this information can be updated by other users. Medical History Sleep apnea Hypothyroid Hypertension Surgical History History of hysterectomy Family History Other Family history of cancer Family history of systemic lupus erythematosus Social History Smoking Status: Current every day smoker tobacco type: cigarettes packs per day: 2 alcohol intake: current alcohol intake frequency: holidays/special occasions only substance use type: denies use current occupational status: employed Travel in the last 8 weeks: None caffeine: Yes Have you lived/traveled outside [place] in past 30 days?: No Contact w/someone who lives/traveled outside [place] past 30 days?: No Exposure to someone with infectious disease in past 14 days?: No Do you have a fever (greater than 100.4 F or 38 C)?: No Have you tested positive for COVID-19: No Exposed to someone with COVID-19 in past 14 days?: No Do you have a sore throat?: No Do you have a cough?: No Do you have any weakness?: No Do you have any diarrhea?: No Are you experiencing any unusual bleeding?: No Do you have any muscle aches/pain?: No Do you have any abdominal pain?: No Are you experiencing loss of taste or smell?: No [facility] Anesthesia Checklist Patient Identification Patient Identification: Arm Band Structural Data Admitted From: Home Planned Operative Procedure/s: colonscopy Consent for Planned Operative Procedure(s) Verified: Yes Verified Documents: Surgical Consent and History and Physical NPO Status Verified Time NPO: 00:00 Additional verifications Patient : No Anesthesia Reactions: No Airway Assessment Mallampati Score:: Class II Dentition: Good Dentition Neurological Assessment Level of Consciousness: Awake, Alert and Appropriate Hx Seizures: No Anesthesia Plan Anesthesia Risk discussed: Yes Anesthesia Plan: Verified ASA Class: II Anesthesia Type: MAC
--- NOTE | 2024-12-04 08:09 | P.HP_ITS ---
History of Present Illness *Admission Date: 12/04/24 *Reason for visit:: Personal history of adenomatous colon polyps *History of present illness: Mrs. Garcia is a 49-year-old female who is here for surveillance colonoscopy. The examination is deemed medically necessary for surveillance colonoscopy. The patient has been seen, interviewed and examined prior to the procedure by both myself and the anesthesia provider. [facility] Disclaimer: The information contained in this section may have been updated after the patient was seen, as this information can be updated by other users. Medical History Sleep apnea Hypothyroid Hypertension Surgical History History of hysterectomy Family History Other Family history of cancer Family history of systemic lupus erythematosus Social History Smoking Status: Current every day smoker tobacco type: cigarettes packs per day: 2 alcohol intake: current alcohol intake frequency: holidays/special occasions only substance use type: denies use current occupational status: employed Travel in the last 8 weeks: None caffeine: Yes Have you lived/traveled outside [place] in past 30 days?: No Contact w/someone who lives/traveled outside [place] past 30 days?: No Exposure to someone with infectious disease in past 14 days?: No Do you have a fever (greater than 100.4 F or 38 C)?: No Have you tested positive for COVID-19: No Exposed to someone with COVID-19 in past 14 days?: No Do you have a sore throat?: No Do you have a cough?: No Do you have any weakness?: No Do you have any diarrhea?: No Are you experiencing any unusual bleeding?: No Do you have any muscle aches/pain?: No Do you have any abdominal pain?: No Are you experiencing loss of taste or smell?: No Other Medical History Have you received the Flu Vaccine for this season: Yes Have you received the Pneumonia Vaccine: No Review of Systems Review of Systems Review of systems (narrative): Negative *Cardiovascular Comments: Negative *Gastrointestinal Comments: Negative *Genitourinary Comments: Negative *Musculoskeletal Comments: Negative *Neurologic Comments: Negative Meds Home Medications and Allergies Home Medications ?Medication ?Instructions ?Recorded ?Confirmed ?Type albuterol sulfate 90 mcg/actuation 2 puff inhalation Q4-6H PRN 08/31/24 12/04/24 Rx aerosol inhaler shortness of breath or wheezing #8.5 grams bisoprolol fumarate 5 mg tablet 5 mg PO DAILY 08/31/24 12/04/24 History levothyroxine 50 mcg tablet 75 mcg PO DAILY 08/31/24 12/04/24 History (Synthroid) meloxicam 15 mg tablet 15 mg PO DAILY 08/31/24 12/04/24 History New Prescriptions to Start Prescriptions: Allergies Allergy/AdvReac Type Severity Reaction Status Date / Time No Known Drug Allergies Allergy Unknown Other Verified 12/04/24 07:40 (NKDA) Exam Data for Last 24 hours Vital signs and Labs for Last 24 Hours: Temp Pulse Resp BP Pulse Ox O2 Del Method 97.7 F 68 18 126/86 98 Room Air 12/04/24 07:41 12/04/24 07:41 12/04/24 07:41 12/04/24 07:41 12/04/24 07:41 12/04/24 07:41 *Routine HEENT Exam Head: Present normocephalic Eye: Present EOMI and PERRL ENT: Present mucous membranes moist *Routine Neck Exam Neck: Present supple *Routine Respiratory Exam Respiratory: Present CTA bilaterally *Routine Cardiovascular Exam Cardiovascular: Present RRR *Routine Abdominal Exam Abdominal: Present soft and normoactive bowel sounds; Absent tenderness *Routine Rectal Exam Rectal:: deferred *Routine Genitalia Exam Genitalia:: deferred *Routine Extremities Exam Extremities: Absent cyanosis, clubbing or edema *Routine Skin Exam Skin: Present warm; Absent rash *Routine Neurological Exam Neurological: Present alert and oriented X3 Assessment and Plan *Assessment and plan (1) Personal history of adenomatous and serrated colon polyps: Status: Acute Category: Medical Code(s): Z86.0101 - Personal history of adenomatous and serrated colon polyps Plan A/P: 1. Personal history of adenomatous colon polyps is the preprocedural diagnosis. The patient will be anesthetized/sedated using MAC sedation. The patient has been seen and examined. Cardiac and lung assessment prior to the e xamination is stable. Proceed with planned surveillance colonoscopy.
[2024-12-04 08:15] VITALS: O2SAT 98
--- NOTE | 2024-12-04 08:19 | HMH.PROCNOTE ---
[facility] Procedure Note Date: 12/04/24 Time: 08:37 Procedure Note:: Colonoscopy Procedure Report: Colonoscopy with cold snare polypectomy Endoscopist: Douglas Shepherd II, MD Referring physician: VERA Nagy Date of Procedure: December 04, 2024 Equipment: Olympus 190 variable stiffness pediatric colonoscope Sedation: MAC sedation Indication: Mrs. Garcia is a 49-year-old female with a prior history of adenomatous colon polyps at time of colonoscopy in January 2017. The patient did have a colonoscopy with in in February 2021 and had 2 diminutive hyperplastic polyps and no other findings. She does have internal hemorrhoids that rarely bleed and occasionally prolapse. She does state that her maternal grandfather had colon cancer in his 70s. She reports no abdominal pain, weight loss or change in her bowel habits. Procedure: Prior to the procedure, a history and physical exam was performed, and patient's medications and allergies were reviewed. The risks, benefits and alternatives of the sedation and procedure were discussed with the patient. All questions were answered and informed consent was obtained. The patient was brought to the procedure room. Patient identification and proposed procedure were verified by the physician and the nurse. The patient was placed in a left lateral decubitus position and the scope was passed under direct vision. Throughout the procedure, the patient's blood pressure, pulse, and oxygen saturations were monitored continuously. The colonoscopy was accomplished without difficulty. The patient tolerated the procedure well. Findings: On digital rectal examination there was normal rectal tone. There was some hemorrhoidal prolapse. The colonoscope was introduced through the anal canal to the rectum and advanced to the cecum. The ileocecal valve and appendiceal orifice were identified. The scope was advanced a short distance into the ileum which appeared grossly normal. The scope was then withdrawn into the colon. There were 3 diminutive polyps (ascending x 1 (5 mm), sigmoid x 1 (4 mm) and rectosigmoid x 1 (2 to 3 mm)). These were all removed via cold snare polypectomy. The remaining cecum, ascending, transverse, descending, sigmoid and rectum were grossly normal. There were no other mucosal abnormalities identified. Upon retroflexion within the rectum there were grade 2 internal hemorrhoids. The preparation was excellent throughout with [place] Preparation Score of 9. The cecal time was 12 minutes. Impression: 1. Diminutive colonic polyps x 3 2. Grade 2 internal hemorrhoids Plan: I will follow-up the polyp histology and recommend repeat surveillance colonoscopy again in 5 to 7 years. I would encourage psyllium bulking fiber supplementation on a maintenance basis.
[2024-12-04 08:38] VITALS: BP 98/68; PULSE 78; RESP 16; TEMP 36.4; O2SAT 96
[2024-12-04 08:48] VITALS: BP 112/65; PULSE 80; RESP 16; O2SAT 97
[2024-12-04 09:17] VITALS: BP 115/70; PULSE 84; RESP 16; O2SAT 98
== END 2024-12-04 09:17 | disposition home or self-care (01) ==
PROVIDERS: PCP Nurse Practitioner Family; Visit Provider Internal Medicine Gastroenterology
PROC: 0DJD8ZZ Inspection of Lower Intestinal Tract, Via Natural or Artificial Opening Endoscopic (ICD-10-PCS; CPT 45378; principal; 2024-12-04 08:30)
DX: K63.5 Polyp of colon (principal); K64.1 Second degree hemorrhoids; Z86.0101 Personal history of adenomatous and serrated colon polyps
CPT/HCPCS: 45385

== ENCOUNTER 2025-01-23 10:44 | Outpatient (CLI) | payer BC, SELFPAY ==
--- NOTE | 2025-01-23 10:47 | MM_ITS ---
PROCEDURE INFORMATION: Exam: MG Bilateral Screening 3D Mammography Exam date and time: 01/23/2025 11:05 AM Age: 50 years old Clinical indication: Screening examination; Family history of breast cancer in grandmother and in aunt TECHNIQUE: Imaging protocol: Bilateral Screening tomosynthesis and 2D mammography including computer-aided detection (CAD) when performed. COMPARISON: 1. MG MM DIG SCREENING MAMM BI W/CAD 10/09/2023 3:22 PM 2. MG MM DIG SCREENING MAMM BI W/CAD 10/07/2022 10:30 AM FINDINGS: MAMMOGRAPHY: Breast composition: There are scattered areas of fibroglandular density. Mass: There is a suggestion of a 0.8 cm mass in the posterior right upper outer quadrant Architectural distortion: None. Calcifications: No suspicious calcifications. Asymmetric density: None. Skin thickening: None. Axillary adenopathy: None. IMPRESSION: Patient to be recalled for spot compression views of the right breast in the CC and MLO projections, a full 90 degree lateral view, and right breast ultrasound for further evaluation of a right breast mass. ASSESSMENT: BI-RADS Category 0: Incomplete- Need Additional Imaging Evaluation
== END 2025-01-23 23:59 | disposition home or self-care (01) ==
LOC: RAD 10:44
PROVIDERS: PCP Nurse Practitioner Family; Visit Provider Nurse Practitioner Family
DX: Z12.31 Encounter for screening mammogram for malignant neoplasm of breast (principal); N63.11 Unspecified lump in the right breast, upper outer quadrant; R92.323 Mammographic fibroglandular density, bilateral breasts
CPT/HCPCS: 77063; 77067

== ENCOUNTER 2025-01-31 14:44 | Outpatient (CLI) | payer BC, SELFPAY ==
--- NOTE | 2025-01-31 14:47 | MM_ITS ---
PROCEDURE INFORMATION: Exam: US Right Breast, Complete MG Right Diagnostic Breast Tomosynthesis Exam date and time: 01/31/2025 2:50 PM Age: 50 years old Clinical indication: Patient recalled on the basis of a screening mammogram for further evaluation; Right breast; mass TECHNIQUE: Imaging protocol: Complete ultrasound of all four quadrants of the right breast and the retroareolar regions, including ultrasound of the axilla when performed. Right Diagnostic tomosynthesis and 2D mammography including computer-aided detection (CAD) when performed. Unilateral or bilateral exam. COMPARISON: 1. MG MM DIG SCREENING MAMM BI W/CAD 01/23/2025 11:05 AM 2. MG MM DIG SCREENING MAMM BI W/CAD 10/09/2023 3:22 PM FINDINGS: MAMMOGRAPHY: Breast composition: The breasts are heterogeneously dense, which may obscure small masses. Breast mammogram findings: Digital diagnostic spot compression views of the right breast and 90 degree lateral view of the right breast demonstrate a persistent 0.8 cm mass in the right 9-10 o'clock axis ULTRASOUND: Breast ultrasound findings: Sonographic images of the right 10 o'clock axis 6 cm from the nipple demonstrates a 1 cm cyst most closely corresponding to the mass on mammography. It should be noted that the sonographic images have been confirmed as right 10 o'clock axis in the right lower quadrant by the technologist. Few other scattered subcentimeter cysts are noted in the right breast. No solid masses. No architectural distortion or acoustic shadowing. No axillary adenopathy. IMPRESSION: Mass on screening mammography corresponds to underlying cystic change sonographically. There is no mammographic evidence of malignancy.Annual bilateral mammographic screening is recommended unless otherwise clinically indicated. ASSESSMENT: BI-RADS Category 2: Benign.
--- OUTSIDE RECORDS SUMMARY | 2025-01-31 14:47 | XMS_ITS | Data Portability ---
Author Organization [facility] [place] [facility] Address [address] [place] [address] Assessment Encounter Date Assessment Date Assessment LastModified by Organization Details LastModified Time 09/29/2023 09/29/2023 Patient presents with symptoms of UTI. Results of dipstick were negative for UTI. Advised to drink clear fluids, Tylenol for pain and take prescribed medications as instructed. Patient encouraged to follow up within 1 week if not improving. [email or web address] Not available 09/29/2023 13:51:36 Plan of Treatment Reminders Order Date Submit Date Provider Last Modified By Organization Details Last Modified Time Details Appointments None recorded. Lab HbA1c (hemoglobin A1c), blood [facility]24 [email or web address] [address], [address], 5 08:40:35 TSH + free T4, serum 2024 025 [place] [facility], [address] [place] [address], [place], [address], 5 08:12:14 rapid flu (A+B) [address], [address], 4 18:19:37 rapid SARS CoV 2 Ag, QL, IA, upper respiratory specimen 2023 024 [facility], [address] [place] [address], [place], [address], 4 18:19:27 HbA1c (hemoglobin A1c), blood 2023 [place] [facility]), [address] [facility], [place], [address], 4 08:14:26 CMP, serum or plasma 2023 024 [place] [facility]), [address] [facility], [place], [address], 4 08:14:25 magnesium, serum or plasma 2023 [place] [facility]), [address] [facility], [place], [address], 4 08:14:26 CBC w/ auto diff 2023 024 [place] [facility] [address] [facility], [place], [address], 4 08:14:25 TSH + free T4, serum 2023 [place] [facility] [address] [facility], [place], [address], 4 08:14:24 lipid panel, serum 2023 024 [email or web address], [address], [place], [address], 4 09:21:05 CMP, serum or plasma 2023 024 [email or web address], [address], [place], [address], 4 09:21:06 HbA1c (hemoglobin A1c), blood [email or web address], [address], 4 10:02:59 vitamin D, 25-hydroxy, total, serum 2023 024 [facility], [address], [place], [address], 4 09:21:08 TSH, serum or plasma 2023 024 [facility], [address], [place], [address], 4 09:21:06 urinalysis, dipstick [address], [address], 4 13:51:54 lipid panel, serum 2023 024 [facility], [address], [place], [address], 4 06:23:35 CMP, serum or plasma 2023 024 [facility], [address], [place], [address], 4 06:23:35 CBC w/ auto diff 2023 024 [facility], [address], [place], [address], 4 06:23:36 vitamin D, 25-hydroxy, total, serum 2023 024 [facility], [address], [place], [address], 4 06:23:37 HbA1c (hemoglobin A1c), blood 2023 024 [facility], [address], [place], [address], 4 06:23:38 TSH, serum or plasma 2023 024 [email or web address], [address], [place], [address], 4 06:23:37 Referral None recorded. Procedures colonoscopy screening (PROC) - first available appt 2024 025 GILA Shepherd MD, [address], [place], [address], 5 08:57:34 Surgeries None recorded. Imaging MAMMO, screening, digital, bilateral - first available appt [address] (Scheduling), [address], [place], [address], 5 14:01:47 holter monitor [address], [address] [place] [address], [address], 4 13:36:20 XR, kidney + ureter + bladder 2023 024 [facility], [address] [place] [address], [address], 4 16:10:20 MAMMO, screening, digital, bilateral 2023 024 [facility] (Scheduling), [address], [place], [address], 4 15:48:35 Medication Orders ketorolac 30 mg/mL (1 mL) injection solution 2023 024 [email or web address] Not available 5 08:18:53 rosuvastati n 10 mg tablet 2023 025 [facility], [address] [place] [address], [address], 5 08:20:17 meloxicam 15 mg tablet 2023 024 [facility], [address] [place] [address], [address], 4 10:43:25 bisoprolol fumarate 5 mg tablet 2023 024 [facility], [address] [place] [address], [address], 4 10:43:26 bupropion HCl XL 150 mg 24 hr tablet, extended release 2023 025 [facility], [address] [place] [address], [address], 5 08:20:17 fluoxetine 40 mg capsule 2023 025 [facility], [address] [place] [address], [address], 5 08:32:37 levothyroxi ne 50 mcg tablet 2023 025 [facility], [address] [place] [address], [address], 5 10:04:22 ketorolac 60 mg/2 mL intramuscul ar solution 2023 024 [email or web address] Not available 4 09:57:36 tamsulosin 0.4 mg capsule 2023 024 [facility], [address] [place], [address], 4 09:59:58 hydrocodone 7.5 mg-acetamin ophen 325 mg tablet 2023 024 [facility], [address] [place], [address], 4 09:59:56 bisoprolol fumarate 5 mg tablet 2023 024 [facility], [address] [facility], [place], [address], 4 09:13:13 Patient TargetsNo targets recorded. Patient InstructionsNo instructions recorded. Reason for Referral None Reported. Results Created Date Observation Date Name Description Value Unit Range Abnormal Flag Note LastModifiedBy Organization Detail LastModifiedTime 09/13/19 24 09/14/2023 LIPID PANEL , STAND SANTANA cholesterol, total 227 mg/dL <200 high Not Available [facility] [address] [place], [address], 09/14/2023 06:23:35 09/13/19 24 09/14/2023 LIPID PANEL , STAND SANTANA HDL cholesterol 54 mg/dL > or = 50 normal Not Available [facility] [address] [place], [address], 09/14/2023 06:23:35 09/13/19 24 09/14/2023 LIPID PANEL , STAND SANTANA triglyceride s 123 mg/dL <150 normal Not Available [facility] [address] [facility] [place], [address], 09/14/2023 06:23:35 09/13/19 24 09/14/2023 LIPID PANEL , STAND SANTANA LDL-choleste rol 148 mg/dL _(kandi c) high Refer ence range : <100 Louie able range <100 mg/dL for prima ry preve ntion ; <70 mg/dL for patie nts with CHD or diabe tic patie nts with > or = 2 CHD risk facto rs. LDL-C is now calcu lated using the Kristen n-Hop kins calcu maci n, which is a valid ated novel metho d susiei awais kaiden r accur acy than the Fried mackenzie equat ion in the estim ation of LDL-C . Kristen n SS et al. SIGIFREDO. 2013; 310(1 9): 2061- 2068 (http ://ed ucati on.Qu radhaAlisa rodríguezAdTotum. com/f aq/FA Q164) Not Available [facility] [address] [facility], [place], [address], 09/14/2023 06:23:35 09/13/19 24 09/14/2023 LIPID PANEL , STAND SANTANA chol/HDLC ratio 4.2 (calc ) <5.0 normal Not Available [facility] [address] [facility], [place], [address], 09/14/2023 06:23:35 09/13/19 24 09/14/2023 LIPID PANEL , STAND SANTANA non HDL cholesterol 173 mg/dL _(kandi c) <130 high For patie nts with diabe romana plus 1 major ASCVD risk facto r, treat ing to a non-H DL-C goal of <100 mg/dL (LDL- C of <70 mg/dL ) is bakari choudhuryo n. Not Available [facility] [address] [facility], [place], [address], 09/14/2023 06:23:35 09/13/19 24 09/14/2023 COMPR EHENS JOSE METAB OLIC PANEL glucose 96 mg/dL 65-99 normal Fasti ng refer ence inter hermelinda Not Available [facility] [address] [facility], [place], [address], 09/14/2023 06:23:35 09/13/19 24 09/14/2023 COMPR EHENS JOSE METAB OLIC PANEL urea nitrogen (BUN) 14 mg/dL 7-25 normal Not Available [facility] [address] [facility], [place], [address], 09/14/2023 06:23:35 09/13/19 24 09/14/2023 COMPR EHENS JOSE METAB OLIC PANEL creatinine 0.67 mg/dL 0.50-1 .03 normal Not Available [facility] [address] [facility] [place], [address], 09/14/2023 06:23:35 09/13/19 24 09/14/2023 COMPR EHENS JOSE METAB OLIC PANEL eGFR 106 mL/mi n/1.7 3m2 > or = 60 normal Not Available [facility] [address] [place], [address], 09/14/2023 06:23:35 09/13/19 24 09/14/2023 COMPR EHENS JOSE METAB OLIC PANEL BUN/creatini ne ratio SEE NOTE: (calc ) 6-22 Not Repor shanon: BUN and Creat inine are withi n refer ence range . Not Available [facility] [address] [facility] [place], [address], 09/14/2023 06:23:35 09/13/19 24 09/14/2023 COMPR EHENS JOSE METAB OLIC PANEL sodium 144 mmol/ L 135-14 6 normal Not Available [facility] [address] [place], [address], 09/14/2023 06:23:35 09/13/19 24 09/14/2023 COMPR EHENS JOSE METAB OLIC PANEL potassium 4.3 mmol/ L 3.5-5. 3 normal Not Available [facility] [address] [place], [address], 09/14/2023 06:23:35 09/13/19 24 09/14/2023 COMPR EHENS JOSE METAB OLIC PANEL chloride 107 mmol/ L 98-110 normal Not Available [facility] [address] [place], [address], 09/14/2023 06:23:35 09/13/19 24 09/14/2023 COMPR EHENS JOSE METAB OLIC PANEL carbon dioxide 30 mmol/ L 20-32 normal Not Available [facility] [address] [facility] [place], [address], 09/14/2023 06:23:35 09/13/19 24 09/14/2023 COMPR EHENS JOSE METAB OLIC PANEL calcium 8.9 mg/dL 8.6-10 .4 normal Not Available [facility] [address] [facility] [place], [address], 09/14/2023 06:23:35 09/13/19 24 09/14/2023 COMPR EHENS JOSE METAB OLIC PANEL protein, total 6.6 g/dL 6.1-8. 1 normal Not Available [facility] [address] [facility] [place], [address], 09/14/2023 06:23:35 09/13/19 24 09/14/2023 COMPR EHENS JOSE METAB OLIC PANEL albumin 4.4 g/dL 3.6-5. 1 normal Not Available [facility] [address] [facility] [place], [address], 09/14/2023 06:23:35 09/13/19 24 09/14/2023 COMPR EHENS JOSE METAB OLIC PANEL globulin 2.2 g/dL_ (calc ) 1.9-3. 7 normal Not Available [facility] [address] [facility] [place], [address], 09/14/2023 06:23:35 09/13/19 24 09/14/2023 COMPR EHENS JOSE METAB OLIC PANEL albumin/glob ulin ratio 2.0 (calc ) 1.0-2. 5 normal Not Available [facility] [address] [facility] [place], [address], 09/14/2023 06:23:35 09/13/19 24 09/14/2023 COMPR EHENS JOSE METAB OLIC PANEL bilirubin, total 0.3 mg/dL 0.2-1. 2 normal Not Available [employer] [facility] [address] [place], [address], 09/14/2023 06:23:35 09/13/19 24 09/14/2023 COMPR EHENS JOSE METAB OLIC PANEL alkaline phosphatase 83 U/L 37-153 normal Not Available [facility] [address], [place], [address], 09/14/2023 06:23:35 09/13/19 24 09/14/2023 COMPR EHENS JOSE METAB OLIC PANEL AST 13 U/L 10-35 normal Not Available [employer] [facility] [address] [place], [address], 09/14/2023 06:23:35 09/13/19 24 09/14/2023 COMPR EHENS JOSE METAB OLIC PANEL ALT 14 U/L 6-29 normal Not Available [employer] [facility] [address] [place], [address], 09/14/2023 06:23:35 09/13/19 24 09/14/2023 CBC (INCL UDES DIFF/ PLT) white blood cell count 6.1 thous and/u L 3.8-10 .8 normal Not Available [employer] [facility] [address] [place], [address], 09/14/2023 07:10:29 09/13/19 24 09/14/2023 CBC (INCL UDES DIFF/ PLT) red blood cell count 4.51 ebony on/uL 3.80-5 .10 normal Not Available [employer] [facility] [address], [place], [address], 09/14/2023 07:10:29 09/13/19 24 09/14/2023 CBC (INCL UDES DIFF/ PLT) hemoglobin 13.8 g/dL 11.7-1 5.5 normal Not Available [facility] [address] [facility] [place], [address], 09/14/2023 07:10:29 09/13/19 24 09/14/2023 CBC (INCL UDES DIFF/ PLT) hematocrit 39.9 % 35.0-4 5.0 normal Not Available [facility] [address], [place], [address], 09/14/2023 07:10:29 09/13/19 24 09/14/2023 CBC (INCL UDES DIFF/ PLT) MCV 88.5 fL 80.0-1 00.0 normal Not Available [facility] [address] [facility] [address], [place], [address], 09/14/2023 07:10:29 09/13/19 24 09/14/2023 CBC (INCL UDES DIFF/ PLT) MCH 30.6 pg 27.0-3 3.0 normal Not Available [facility] [address] [facility] [address], [place], [address], 09/14/2023 07:10:29 09/13/19 24 09/14/2023 CBC (INCL UDES DIFF/ PLT) MCHC 34.6 g/dL 32.0-3 6.0 normal Not Available [facility] [address], [place], [address], 09/14/2023 07:10:29 09/13/19 24 09/14/2023 CBC (INCL UDES DIFF/ PLT) RDW 12.8 % 11.0-1 5.0 normal Not Available [facility] [address] [facility] [address], [place], [address], 09/14/2023 07:10:29 09/13/19 24 09/14/2023 CBC (INCL UDES DIFF/ PLT) platelet count 166 thous and/u L 140-40 0 normal Not Available [facility] [address] [place], [address], 09/14/2023 07:10:29 09/13/19 24 09/14/2023 CBC (INCL UDES DIFF/ PLT) MPV 11.1 fL 7.5-12 .5 normal Not Available [facility] [address] [facility] [address], [place], [address], 09/14/2023 07:10:29 09/13/19 24 09/14/2023 CBC (INCL UDES DIFF/ PLT) absolute neutrophils 4093 cells /uL 1500-7 800 normal Not Available [facility] [address] [facility] [address], [place], [address], 09/14/2023 07:10:29 09/13/19 24 09/14/2023 CBC (INCL UDES DIFF/ PLT) absolute lymphocytes 1379 cells /uL 850-39 00 normal Not Available [facility] [address] [facility] [place], [address], 09/14/2023 07:10:29 09/13/19 24 09/14/2023 CBC (INCL UDES DIFF/ PLT) absolute monocytes 445 cells /uL 200-95 0 normal Not Available [facility] [address] [facility] [address], [place], [address], 09/14/2023 07:10:29 09/13/19 24 09/14/2023 CBC (INCL UDES DIFF/ PLT) absolute eosinophils 122 cells /uL 15-500 normal Not Available [facility] [address] [facility] [address], [place], [address], 09/14/2023 07:10:29 09/13/19 24 09/14/2023 CBC (INCL UDES DIFF/ PLT) absolute basophils 61 cells /uL 0-200 normal Not Available [facility] [address] [place], [address], 09/14/2023 07:10:29 09/13/19 24 09/14/2023 CBC (INCL UDES DIFF/ PLT) neutrophils 67.1 % normal Not Available [facility] [address] [place], [address], 09/14/2023 07:10:29 09/13/19 24 09/14/2023 CBC (INCL UDES DIFF/ PLT) lymphocytes 22.6 % normal Not Available [facility] [address] [place], [address], 09/14/2023 07:10:29 09/13/19 24 09/14/2023 CBC (INCL UDES DIFF/ PLT) monocytes 7.3 % normal Not Available [facility] [address] [place], [address], 09/14/2023 07:10:29 09/13/19 24 09/14/2023 CBC (INCL UDES DIFF/ PLT) eosinophils 2.0 % normal Not Available [facility] [address] [place], [address], 09/14/2023 07:10:29 09/13/19 24 09/14/2023 CBC (INCL UDES DIFF/ PLT) basophils 1.0 % normal Not Available [facility] [address] [place], [address], 09/14/2023 07:10:29 09/13/19 24 09/14/2023 TSH W/REF RUTH TO FT4 TSH w/reflex to FT4 5.02 mIU/L high Refer ence Range > or = 20 Years 0.40- 4.50 Pregn roxana Range s First trime ster 0.26- 2.66 Secon d trime ster 0.55- 2.73 Third trime ster 0.43- 2.91 Not Available [facility] [address] [place], [address], 09/14/2023 10:26:03 09/13/19 24 09/14/2023 VITAM IN D,25- OH,TO SEBASTIEN,I A vitamin D,25-oh,tota l,ia 14 NG/mL 30-100 low Vitam in D Statu s 25-OH Vitam in D: Defic iency : <20 ng/mL Insuf ficie ncy: 20 - 29 ng/mL Optim al: > or = 30 ng/mL For 25-OH Vitam in D testi ng on patie nts on D2-mcdonough pplem entat ion and patie nts for whom quant itati on of D2 and D3 fract ions is requi red, the [facility] e[facility](TM ) 25-OH VIT D, (D2,D 3), LC/MS /MS is recom sancho d: order code 68867 (jef ents >2yrs ). See Note 1 Note 1 For addit ional infor paramjit villa e refer to http: //jackson Jay stDia gnost ics.c om/fa q/FAQ 199 (This link is being provi ded for infor saul gonzalez/ rose amaya purpo ses only. ) Not Available [facility] [address] [place], [address], 09/14/2023 06:48:00 09/13/19 24 09/14/2023 HEMOG LOBIN A1C hemoglobin A1C 5.5 %_of_ total _HGB <5.7 normal For the purpo se of scree ruth ann for the prese nce of diabe romana: <5.7% Consi stent with the absen ce of diabe romana 5.7-6 .4% Consi stent with incre ased risk for diabe romana (pred iabet es) > or =6.5% Consi stent with diabe romana This assay resul t is consi stent with a decre ased risk of diabe romana. Curre ntly, no conse nsus exist s regar ding use of hemog lobin A1c for diagn osis of diabe romana in child finn. Accor ding to Ameri can Diabe romana Assoc iatio n (ADA) guide lines , hemog lobin A1c <7.0% repre sents optim al contr ol in non-p regna nt diabe tic patie nts. Diffe rent metri cs may apply to speci fic patie nt popul ation s. Stand ards of Medic al Care in Diabe romana(A DA). HbA1c perfo rmed on Abbot t platf orm. Not Available [facility] [address] [place], [address], 09/14/2023 08:45:53 09/13/19 24 09/14/2023 T4, FREE T4, free 1.0 NG/dL 0.8-1. 8 normal Not Available [facility] [address] [place], [address], 09/14/2023 10:26:05 09/29/19 24 09/29/2023 urina lysis , dipst ick Leukocytes Negati ve Not Available [address], [address], 09/29/2023 13:40:19 09/29/19 24 09/29/2023 urina lysis , dipst ick Nitrite negati ve Not Available [address], [address], 09/29/2023 13:40:19 09/29/19 24 09/29/2023 urina lysis , dipst ick Urobilinogen .2 Not Available [address], [address], 09/29/2023 13:40:19 09/29/19 24 09/29/2023 urina lysis , dipst ick Protein Negati ve Not Available [address] [place], [address], 09/29/2023 13:40:19 09/29/19 24 09/29/2023 urina lysis , dipst ick pH 5.5 Not Available [address], [address], 09/29/2023 13:40:19 09/29/19 24 09/29/2023 urina lysis , dipst ick Blood Modera te Not Available [address], [address], 09/29/2023 13:40:19 09/29/19 24 09/29/2023 urina lysis , dipst ick Specific [place] 1.010 Not Available [address], [address], 09/29/2023 13:40:19 09/29/19 24 09/29/2023 urina lysis , dipst ick Ketone Negati ve Not Available [address], [address], 09/29/2023 13:40:19 09/29/19 24 09/29/2023 urina lysis , dipst ick Bilirubin Negati ve Not Available [address], [address], 09/29/2023 13:40:19 09/29/19 24 09/29/2023 urina lysis , dipst ick Glucose Negati ve Not Available [address], [address], 09/29/2023 13:40:19 09/29/19 24 09/29/2023 urina lysis , dipst ick Appearance Clear Not Available [address], [address], 09/29/2023 13:40:19 09/29/19 24 09/29/2023 urina lysis , dipst ick Color Yellow Not Available [address], [address], 09/29/2023 13:40:19 03/15/20 24 03/16/2024 LIPID PANEL , STAND SANTANA cholesterol, total 180 mg/dL <200 normal Not Available [facility] [address] [place], [address], 03/16/2024 09:21:05 03/15/20 24 03/16/2024 LIPID PANEL , STAND SANTANA HDL cholesterol 70 mg/dL > or = 50 normal Not Available [facility] [address] [place], [address], 03/16/2024 09:21:05 03/15/20 24 03/16/2024 LIPID PANEL , STAND SANTANA triglyceride s 131 mg/dL <150 normal Not Available [facility] [address] [place], [address], 03/16/2024 09:21:05 03/15/20 24 03/16/2024 LIPID PANEL , STAND SANTANA LDL-choleste rol 87 mg/dL _(kandi c) normal Refer ence range : <100 Louie able range <100 mg/dL for prima ry preve ntion ; <70 mg/dL for patie nts with CHD or diabe tic patie nts with > or = 2 CHD risk facto rs. LDL-C is now calcu lated using the Kristen n-Hop kins felipeu maci n, which is a valid ated novel kayleeo ming richey r accur acy than the Fried mackenzie equat ion in the estim ation of LDL-C . Kristen pedersen SS et al. SIGIFREDO. 2013; 310(1 9): 2061- 2068 (http ://ed ucati on.Qu estDi agnos Social Rewardss. com/f aq/FA Q164) Not Available [facility] [address] [facility] [place], [address], 03/16/2024 09:21:05 03/15/20 24 03/16/2024 LIPID PANEL , STAND SANTANA chol/HDLC ratio 2.6 (calc ) <5.0 normal Not Available [facility] [address] [facility] [place], [address], 03/16/2024 09:21:05 03/15/20 24 03/16/2024 LIPID PANEL , STAND SANTANA non HDL cholesterol 110 mg/dL _(kandi c) <130 normal For patie nts with diabe romana plus 1 major ASCVD risk facto r, treat ing to a non-H DL-C goal of <100 mg/dL (LDL- C of <70 mg/dL ) is consi dered a thera peuti c optio n. Not Available [facility] [address] [facility] [place], [address], 03/16/2024 09:21:05 03/15/20 24 03/16/2024 COMPR EHENS JOSE METAB OLIC PANEL glucose 93 mg/dL 65-99 normal Fasti ng refer ence inter hermelinda Not Available [facility] [address] [facility] [place], [address], 03/16/2024 09:21:06 03/15/20 24 03/16/2024 COMPR EHENS JOSE METAB OLIC PANEL urea nitrogen (BUN) 13 mg/dL 7-25 normal Not Available [facility] [address] [facility] [place], [address], 03/16/2024 09:21:06 03/15/20 24 03/16/2024 COMPR EHENS JOSE METAB OLIC PANEL creatinine 0.76 mg/dL 0.50-1 .03 normal Not Available [facility] [address] [facility] [place], [address], 03/16/2024 09:21:06 03/15/20 24 03/16/2024 COMPR EHENS JOSE METAB OLIC PANEL eGFR 95 mL/mi n/1.7 3m2 > or = 60 normal Not Available [facility] [address] [facility] [place], [address], 03/16/2024 09:21:06 03/15/20 24 03/16/2024 COMPR EHENS JOSE METAB OLIC PANEL BUN/creatini ne ratio SEE NOTE: (calc ) 6-22 Not Repor shanon: BUN and Creat inine are withi n refer ence range . Not Available [facility] [address] [place], [address], 03/16/2024 09:21:06 03/15/20 24 03/16/2024 COMPR EHENS JOSE METAB OLIC PANEL sodium 141 mmol/ L 135-14 6 normal Not Available [facility] [address] [facility] [place], [address], 03/16/2024 09:21:06 03/15/20 24 03/16/2024 COMPR EHENS JOSE METAB OLIC PANEL potassium 4.8 mmol/ L 3.5-5. 3 normal Not Available [employer] [facility] [address] [place], [address], 03/16/2024 09:21:06 03/15/20 24 03/16/2024 COMPR EHENS JOSE METAB OLIC PANEL chloride 104 mmol/ L 98-110 normal Not Available [facility] [address] [place], [address], 03/16/2024 09:21:06 03/15/20 24 03/16/2024 COMPR EHENS JOSE METAB OLIC PANEL carbon dioxide 28 mmol/ L 20-32 normal Not Available [facility] [address] [place], [address], 03/16/2024 09:21:06 03/15/20 24 03/16/2024 COMPR EHENS JOSE METAB OLIC PANEL calcium 9.9 mg/dL 8.6-10 .4 normal Not Available [facility] [address] [facility] [place], [address], 03/16/2024 09:21:06 03/15/20 24 03/16/2024 COMPR EHENS JOSE METAB OLIC PANEL protein, total 6.8 g/dL 6.1-8. 1 normal Not Available [facility] [address] [place], [address], 03/16/2024 09:21:06 03/15/20 24 03/16/2024 COMPR EHENS JOSE METAB OLIC PANEL albumin 4.6 g/dL 3.6-5. 1 normal Not Available [facility] [address] [facility] [place], [address], 03/16/2024 09:21:06 03/15/20 24 03/16/2024 COMPR EHENS JOSE METAB OLIC PANEL globulin 2.2 g/dL_ (calc ) 1.9-3. 7 normal Not Available [facility] [address] [place], [address], 03/16/2024 09:21:06 03/15/20 24 03/16/2024 COMPR EHENS JOSE METAB OLIC PANEL albumin/glob ulin ratio 2.1 (calc ) 1.0-2. 5 normal Not Available [facility] [address] [facility] [place], [address], 03/16/2024 09:21:06 03/15/20 24 03/16/2024 COMPR EHENS JOSE METAB OLIC PANEL bilirubin, total 0.4 mg/dL 0.2-1. 2 normal Not Available [facility] [address] [place], [address], 03/16/2024 09:21:06 03/15/20 24 03/16/2024 COMPR EHENS JOSE METAB OLIC PANEL alkaline phosphatase 86 U/L 37-153 normal Not Available [facility] [address] [place], [address], 03/16/2024 09:21:06 03/15/20 24 03/16/2024 COMPR EHENS JOSE METAB OLIC PANEL AST 12 U/L 10-35 normal Not Available [facility] [address] [place], [address], 03/16/2024 09:21:06 03/15/20 24 03/16/2024 COMPR EHENS JOSE METAB OLIC PANEL ALT 14 U/L 6-29 normal Not Available [facility] [address] [place], [address], 03/16/2024 09:21:06 03/15/20 24 03/16/2024 TSH W/REF RUTH TO FT4 TSH w/reflex to FT4 5.20 mIU/L high Refer ence Range > or = 20 Years 0.40- 4.50 Pregn roxana Range s First trime ster 0.26- 2.66 Secon d trime ster 0.55- 2.73 Third trime ster 0.43- 2.91 Not Available [facility] [address] [place], [address], 03/16/2024 09:21:06 03/15/20 24 03/16/2024 T4, FREE T4, free 1.1 NG/dL 0.8-1. 8 normal Not Available [facility] [address] [place], [address], 03/16/2024 09:21:07 03/15/20 24 03/16/2024 VITAM IN D,25- OH,TO SEBASTIEN,I A vitamin D,25-oh,tota l,ia 50 NG/mL 30-100 normal Vitam in D Statu s 25-OH Vitam in D: Defic iency : <20 ng/mL Insuf ficie ncy: 20 - 29 ng/mL Optim al: > or = 30 ng/mL For 25-OH Vitam in D testi ng on patie nts on D2-mcdonough pplem entat ion and patie nts for whom quant itati on of D2 and D3 fract ions is requi red, the [facility] eD(TM ) 25-OH VIT D, (D2,D 3), LC/MS /MS is recom sancho d: order code 24167 (jef ents >2yrs ). See Note 1 Note 1 For addit ional infor paramjit villa refer to http: //[facility] gonzalo Jay stDia gnost ics.c om/fa q/FAQ 199 (This link is being provi ded for infor saul gonzalez/ rose amaya purpo ses only. ) Not Available [facility] [address] [place] [address], [address], 03/16/2024 09:21:08 03/15/20 24 03/15/2024 HbA1c (hemo globi n A1c), blood HbA1c 6.2 Not Available [address], [address], 03/15/2024 07:52:26 05/28/20 24 05/28/2024 rapid SARS CoV 2 Ag, QL, IA, upper respi rator y speci men SARS CoV Ag negati ve Not Available [address], [address], 05/28/2024 17:55:15 05/28/20 24 05/28/2024 rapid flu (A+B) Flu A negati ve Not Available [address], [address], 05/28/2024 17:55:14 05/28/20 24 05/28/2024 rapid flu (A+B) Flu B negati ve Not Available [address], [place], [address], 05/28/2024 17:55:14 05/29/20 24 05/30/2024 TSH+F REE T4 TSH 6.550 uIU/m L 0.450- 4.500 above high normal Not Available [facility] ([facility]) [address] [place], [address], 05/30/2024 08:14:24 05/29/2005/30/2024 TSH+F REE T4 T4,free(dire ct) 0.99 NG/dL 0.82-1 .77 normal Not Available [facility] ([facility]) [address] [place], [address], 05/30/2024 08:14:24 05/29/2005/30/2024 CBC WITH DIFFE RENTI AL/PL ATELE T WBC 9.0 x10e3 /uL 3.4-10 .8 normal Not Available [facility] ([facility]) [address] [place], [address], 05/30/2024 08:14:25 05/29/2005/30/2024 CBC WITH DIFFE RENTI AL/PL ATELE T RBC 4.63 x10e6 /uL 3.77-5 .28 normal Not Available [facility] ([facility]) [address] [place], [address], 05/30/2024 08:14:25 05/29/2005/30/2024 CBC WITH DIFFE RENTI AL/PL ATELE T hemoglobin 13.3 g/dL 11.1-1 5.9 normal Not Available [facility] ([facility]) [address] [place], [address], 05/30/2024 08:14:25 05/29/20 24 05/30/2024 CBC WITH DIFFE RENTI AL/PL ATELE T hematocrit 43.5 % 34.0-4 6.6 normal Not Available [facility] ([facility]) [address] [facility], [place], [address], 05/30/2024 08:14:25 05/29/2005/30/2024 CBC WITH DIFFE RENTI AL/PL ATELE T MCV 94 fL 79-97 normal Not Available [facility] ([facility]) [address] [facility], [place], [address], 05/30/2024 08:14:25 05/29/2005/30/2024 CBC WITH DIFFE RENTI AL/PL ATELE T MCH 28.7 pg 26.6-3 3.0 normal Not Available [facility] ([facility]) [address] [facility], [place], [address], 05/30/2024 08:14:25 05/29/20 24 05/30/2024 CBC WITH DIFFE RENTI AL/PL ATELE T MCHC 30.6 g/dL 31.5-3 5.7 below low normal Not Available [facility] ([facility]) [address] [facility], [place], [address], 05/30/2024 08:14:25 05/29/2005/30/2024 CBC WITH DIFFE RENTI AL/PL ATELE T RDW 12.7 % 11.7-1 5.4 Not Available [facility] ([facility]) [address] [place], [address], 05/30/2024 08:14:25 05/29/20 24 05/30/2024 CBC WITH DIFFE RENTI AL/PL ATELE T platelets 211 x10e3 /uL 150-45 0 normal Not Available [facility] ([facility]) [address] [place], [address], 05/30/2024 08:14:25 05/29/20 24 05/30/2024 CBC WITH DIFFE RENTI AL/PL ATELE T neutrophils 72 % not estab. normal Not Available [facility] ([facility]) [address] [facility], [place], [address], 05/30/2024 08:14:25 05/29/20 24 05/30/2024 CBC WITH DIFFE RENTI AL/PL ATELE T lymphs 18 % not estab. normal Not Available [facility] ([facility]) [address] [facility], [place], [address], 05/30/2024 08:14:25 05/29/2005/30/2024 CBC WITH DIFFE RENTI AL/PL ATELE T monocytes 7 % not estab. normal Not Available [facility] ([facility]) [address] [facility], [place], [address], 05/30/2024 08:14:25 05/29/20 24 05/30/2024 CBC WITH DIFFE RENTI AL/PL ATELE T eos 2 % not estab. normal Not Available [facility] ([facility]) [address] [facility], [place], [address], 05/30/2024 08:14:25 05/29/20 24 05/30/2024 CBC WITH DIFFE RENTI AL/PL ATELE T basos 1 % not estab. normal Not Available [facility] ([facility]) [address] [facility], [place], [address], 05/30/2024 08:14:25 05/29/20 24 05/30/2024 CBC WITH DIFFE RENTI AL/PL ATELE T immature cells SAMPLE WEAVER Not Available [facility] ([facility]) [address] [facility], [place], [address], 05/30/2024 08:14:25 05/29/20 24 05/30/2024 CBC WITH DIFFE RENTI AL/PL ATELE T neutrophils (absolute) 6.6 x10e3 /uL 1.4-7. 0 normal Not Available [facility] ([facility]) [address] [facility], [place], [address], 05/30/2024 08:14:25 05/29/20 24 05/30/2024 CBC WITH DIFFE RENTI AL/PL ATELE T lymphs (absolute) 1.6 x10e3 /uL 0.7-3. 1 normal Not Available [facility] ([facility]) [address] [facility], [place], [address], 05/30/2024 08:14:25 05/29/2005/30/2024 CBC WITH DIFFE RENTI AL/PL ATELE T monocytes(ab solute) 0.6 x10e3 /uL 0.1-0. 9 normal Not Available [facility] ([facility]) [address] [facility], [place], [address], 05/30/2024 08:14:25 05/29/20 24 05/30/2024 CBC WITH DIFFE RENTI AL/PL ATELE T eos (absolute) 0.2 x10e3 /uL 0.0-0. 4 normal Not Available [facility] ([facility]) [address] [facility], [place], [address], 05/30/2024 08:14:25 05/29/20 24 05/30/2024 CBC WITH DIFFE RENTI AL/PL ATELE T baso (absolute) 0.1 x10e3 /uL 0.0-0. 2 normal Not Available [facility] ([facility]) [address] [place], [address], 05/30/2024 08:14:25 05/29/2005/30/2024 CBC WITH DIFFE RENTI AL/PL ATELE T immature granulocytes 0 % not estab. Not Available [facility] ([facility]) [address] [facility], [place], [address], 05/30/2024 08:14:25 05/29/20 24 05/30/2024 CBC WITH DIFFE RENTI AL/PL ATELE T immature grans (abs) 0.0 x10e3 /uL 0.0-0. 1 Not Available [facility] ([facility]) [address] [facility], [place], [address], 05/30/2024 08:14:25 05/29/20 24 05/30/2024 CBC WITH DIFFE RENTI AL/PL ATELE T NRBC [employer] Not Available [facility] ([facility]) [address] [facility], [place], [address], 05/30/2024 08:14:25 05/29/2005/30/2024 CBC WITH DIFFE RENTI AL/PL ATELE T hematology comments: SAMPLE WE[employer]ER Not Available [facility] ([facility]) [address] [facility], [place], [address], 05/30/2024 08:14:25 05/29/20 24 05/30/2024 COMP. METAB OLIC PANEL (14) glucose 100 mg/dL 70-99 above high normal Not Available [facility] ([facility]) [address] [facility], [place], [address], 05/30/2024 08:14:25 05/29/20 24 05/30/2024 COMP. METAB OLIC PANEL (14) BUN 17 mg/dL 6-24 normal Not Available [facility] ([facility]) [address] [facility], [place], [address], 05/30/2024 08:14:25 05/29/20 24 05/30/2024 COMP. METAB OLIC PANEL (14) creatinine 0.82 mg/dL 0.57-1 .00 normal Not Available [facility] ([facility]) [address] [facility], [place], [address], 05/30/2024 08:14:25 05/29/20 24 05/30/2024 COMP. METAB OLIC PANEL (14) eGFR 87 mL/mi n/1.7 3 >59 normal Not Available [facility] ([facility]) [address] [place], [address], 05/30/2024 08:14:25 05/29/20 24 05/30/2024 COMP. METAB OLIC PANEL (14) BUN/creatini ne ratio 21 9-23 normal Not Available [facility] ([facility]) [address] [place], [address], 05/30/2024 08:14:25 05/29/20 24 05/30/2024 COMP. METAB OLIC PANEL (14) sodium 141 mmol/ L 134-14 4 normal Not Available [facility] ([facility]) [address] [place], [address], 05/30/2024 08:14:25 05/29/20 24 05/30/2024 COMP. METAB OLIC PANEL (14) potassium 4.2 mmol/ L 3.5-5. 2 normal Not Available [facility] ([facility]) [address] [place], [address], 05/30/2024 08:14:25 05/29/20 24 05/30/2024 COMP. METAB OLIC PANEL (14) chloride 105 mmol/ L 96-106 normal Not Available [facility] ([facility]) [address] [place], [address], 05/30/2024 08:14:25 05/29/20 24 05/30/2024 COMP. METAB OLIC PANEL (14) carbon dioxide, total 22 mmol/ L 20-29 normal Not Available [facility] ([facility]) [address] [place], [address], 05/30/2024 08:14:25 05/29/20 24 05/30/2024 COMP. METAB OLIC PANEL (14) calcium 9.3 mg/dL 8.7-10 .2 normal Not Available [facility] ([facility] [facility]) [address] [facility], [place], [address], 05/30/2024 08:14:25 05/29/2005/30/2024 COMP. METAB OLIC PANEL (14) protein, total 6.3 g/dL 6.0-8. 5 normal Not Available [facility] ([facility]) [address], [place], [address], 05/30/2024 08:14:25 05/29/20 24 05/30/2024 COMP. METAB OLIC PANEL (14) albumin 4.3 g/dL 3.8-4. 9 normal Not Available [facility] ([facility]) [address] [place], [address], 05/30/2024 08:14:25 05/29/20 24 05/30/2024 COMP. METAB OLIC PANEL (14) globulin, total 2.0 g/dL 1.5-4. 5 Not Available [facility] ([facility]) [address] [facility], [place], [address], 05/30/2024 08:14:25 05/29/2005/30/2024 COMP. METAB OLIC PANEL (14) bilirubin, total 0.3 mg/dL 0.0-1. 2 normal Not Available [facility] ([facility]) [address] [facility], [place], [address], 05/30/2024 08:14:25 05/29/2005/30/2024 COMP. METAB OLIC PANEL (14) alkaline phosphatase 97 IU/L 44-121 normal Not Available [facility] ([facility]) [address] [place], [address], 05/30/2024 08:14:25 05/29/20 24 05/30/2024 COMP. METAB OLIC PANEL (14) AST (SGOT) 12 IU/L 0-40 normal Not Available [facility] ([facility]) [address] [facility], [place], [address], 05/30/2024 08:14:25 05/29/20 24 05/30/2024 COMP. METAB OLIC PANEL (14) ALT (SGPT) 14 IU/L 0-32 normal Not Available [facility] ([facility]) [address] [facility], [place], [address], 05/30/2024 08:14:25 05/29/20 24 05/30/2024 HEMOG LOBIN A1C hemoglobin A1C 5.8 % 4.8-5. 6 above high normal Predi abete s: 5.7 - 6.4 Diabe romana: >6.4 Glyce duncan contr ol for adult s with diabe romana: <7.0 Not Available [facility] ([facility]) [address] [facility], [place], [address], 05/30/2024 08:14:26 05/29/20 24 05/30/2024 MAGNE SIUM magnesium 1.8 mg/dL 1.6-2. 3 normal Not Available [facility] ([facility]) [address] [place], [address], 05/30/2024 08:14:26 09/11/19 25 09/12/2024 TSH+F REE T4 TSH 7.180 uIU/m L 0.450- 4.500 above high normal Not Available [facility] ([facility]) [address] [place], [address], 09/12/2024 08:12:14 09/11/1909/12/2024 TSH+F REE T4 T4,free(dire ct) 1.19 NG/dL 0.82-1 .77 normal Not Available [facility] ([facility]) [address] [place], [address], 09/12/2024 08:12:14 09/11/19 25 09/11/2024 HbA1c (hemo globi n A1c), blood HbA1c 5.8 Not Available [address] [place], [address], 09/11/2024 08:20:17 09/29/19 XR, kidne y + urete r + bladd er No observ ation record ed. [address], [place], [address], 09/29/2023 16:44:35 10/03/19 24 10/03/2023 CT, abdom en + pelvi s, w/ contr ast No observ ation record ed. [place] [address], [place], [address], 10/03/2023 14:11:01 10/11/19 24 10/09/2023 MAMMO , scree ruth ann, digit al, bilat eral No observ ation record ed. [facility] [address], [place], [address], 10/13/2023 14:43:19 05/28/20 24 06/19/2024 pierre r monit or No observ ation record ed. [address], [address], 06/22/2024 11:08:27 06/08/20 24 06/07/2024 appli catio n of cardi ac monit or* No observ ation record ed. [place] [id number] [facility], [place], [address], 06/19/2024 17:40:18 01/28/20 25 01/23/2025 MAMMO , scree ruth ann, digit al, bilat eral No observ ation record ed. [address], [place], [address], 01/27/2025 13:16:23 Result Notes None recorded. Problems Name Problem SNOMED Code Status Onset Date Resolution Date Notes Provider Name and Address Organization Details Recorded Time Prediabe romana 702044059 Active 2024 Meliza Liriano, GINA [address] [place], [address] , [employer] 5 08:24:50 [facility] arturo 64199878 Active 2024 Meliza Liriano, AGRONOMY TECHNICIAN [address] [place], [address] , [employer]. 5 08:24:54 Inconclu sive mammogra phy finding 05663730835 9104 Active 2024 Meliza Liriano APRN [address] [place], [address] , [employer] 5 13:16:38 Neoplasm of uncertai n behavior of skin 64343151 Completed 202009/20/2022 Problem Code: D48.5; Problem Code Type: ICD-10; DAYNA LUGO [facility], [employer] 3 08:18:28 Hypothyr oidism 76266658 Active 2020 Not Available [facility] 2 22:11:19 Vitamin D deficien cy 03275618 Active 2019 Problem Code: E55.9; Problem Code Type: ICD-10; Not Available [facility] 2 22:11:19 Mixed hyperlip idemia 998178303 Active 2021 Problem Code: E78.2; Problem Code Type: ICD-10; Not Available [facility] 2 22:11:19 Tobacco dependen ce caused by cigarett es 83921284994 281095 Active 2020 Problem Code: F17.210; Problem Code Type: ICD-10; Not Available [facility] 2 22:11:19 Major depressi on, single episode 21017749 Active 2021 Problem Code: F32.9; Problem Code Type: ICD-10; Not Available [facility] 2 22:11:19 Obstruct jose sleep apnea syndrome 35772324 Active 2020 Problem Code: G47.33; Problem Code Type: ICD-10; Not Available [facility] 2 22:11:20 Acute sinusiti s 00739887 Completed 202012/27/2021 Problem Code: J01.90; Problem Code Type: ICD-10; Not Available [facility] 2 22:11:20 Influenz a 0074385 Completed 201612/05/2016 Problem Code: J10.1; Problem Code Type: ICD-10; Not Available [facility] 2 22:11:20 Acute bronchit is 17302532 Completed 201612/09/2016 Problem Code: J20.8; Problem Code Type: ICD-10; Not Available [facility] 2 22:11:20 Acute bronchit is 61419111 Completed 201712/15/2017 Problem Code: J20.9; Problem Code Type: ICD-10; Not Available [facility] 2 22:11:20 Onycholy sis 58018159 Completed 201910/06/2020 Problem Code: L60.1; Problem Code Type: ICD-10; Not Available [facility] 2 22:11:20 Idiopath ic osteoart hritis 590623225 Active 2019 Problem Code: M16.11; Problem Code Type: ICD-10; Not Available [facility] 2 22:11:20 Pain of shoulder region 59820512 Completed 201712/01/2017 Not Available [facility] 2 22:11:20 Renal colic 6481126 Completed 201703/25/2018 Problem Code: N23; Problem Code Type: ICD-10; Not Available [facility] 2 22:11:20 Snoring 78515498 Completed 202001/13/2021 Problem Code: R06.83; Problem Code Type: ICD-10; Not Available [facility] 2 22:11:20 Pain of intercos sebastien space 593201083 Completed 201710/04/2017 Problem Code: R07.82; Problem Code Type: ICD-10; Not Available [facility] 22:11:21 Hypernas ality syndrome 56059199 Completed 201610/18/2017 Not Available [facility] 2 22:11:21 Finding of general energy 179370278 Completed 202001/13/2021 Problem Code: R53.83; Problem Code Type: ICD-10; Not Available [facility] 2 22:11:21 Localize d edema 027072449 Completed 202012/27/2021 Problem Code: R60.0; Problem Code Type: ICD-10; Not Available [facility] 22:11:21 General examinat ion of patient Active 2019 Not Available [facility] 2 22:11:21 Screenin g mammogra phy Completed 202009/20/2022 Problem Code: Z12.31; Problem Code Type: ICD-10; DAYNA SMITHR null, [employer] 3 08:18:28 Breast neoplasm screenin g status 806911569 Completed 201703/30/2018 Problem Code: Z12.39; Problem Code Type: ICD-10; Not Available [facility] 22:11:21 Viral screenin g Completed 201909/20/2022 Problem Code: Z11.59; Problem Code Type: ICD-10; DAYNA MENJIVARNEAR null, [employer] 3 08:18:28 Choleste rol screenin g Completed 202012/27/2021 Not Available [facility] 2 22:11:22 Screenin g mammogra phy Completed 201910/06/2020 Problem Code: Z12.31; Problem Code Type: ICD-10; DAYNA MENJIVARNEAR null, [employer] 3 08:18:28 Body mass index 30+ - obesity 259553754 Active 2020 Problem Code: Z68.33; Problem Code Type: ICD-10; Not Available [facility] 2 22:11:23 Body mass index 30+ - obesity 267372911 Completed 202012/27/2021 Problem Code: Z68.36; Problem Code Type: ICD-10; Not Available [facility] 2 22:11:23 Neoplasm of uncertai n behavior of liver and/or biliary passages 964499370 Completed 201701/29/2018 Problem Code: 235.3; Problem Code Type: ICD-9; Not Available [facility] 2 22:11:23 Enteropa thic arthriti s 6604770 Completed 201703/30/2018 Problem Code: M07.69; Problem Code Type: ICD-10; Not Available [facility] 2 22:11:23 History of polyp of colon 272065893 Completed 202009/20/2022 Problem Code: Z86.010; Problem Code Type: ICD-10; DAYNA TIARAGARCIA villaseñor, [employer] 3 08:18:28 History of polyp of colon 895730702 Completed 201910/06/2020 Problem Code: Z86.010; Problem Code Type: ICD-10; DAYNA TIARAGARCIA null, [employer] 3 08:18:28 Low back pain co-occur rent with neuralgi a of right sciatic nerve 98472789834 9105 Completed 201704/03/2020 Problem Code: M54.41; Problem Code Type: ICD-10; Not Available [facility] 2 22:11:24 Cough 34890771 Completed 201612/09/2016 Problem Code: R05; Problem Code Type: ICD-10; Not Available [facility] 2 22:11:24 Shoulder joint pain 899709361 Completed 201712/01/2017 Problem Code: 719.41; Problem Code Type: ICD-9; Not Available [facility] 2 22:11:24 Sprain of shoulder and upper arm Completed 201710/04/2017 Problem Code: 840.8; Problem Code Type: ICD-9; Not Available [facility] 2 22:11:24 Difficul ty speaking Completed 201610/18/2017 Problem Code: 784.49; Problem Code Type: ICD-9; Not Available [facility] 2 22:11:25 Arthropa thy 374075981 Completed 201703/30/2018 Problem Code: 716.89; Problem Code Type: ICD-9; Not Available [facility] 2 22:11:25 Cough 36533429 Completed 201712/15/2017 Problem Code: 786.2; Problem Code Type: ICD-9; Not Available [facility] 2 22:11:25 Chest pain 70071087 Completed 201710/04/2017 Problem Code: 786.59; Problem Code Type: ICD-9; Not Available [facility] 2 22:11:25 Screenin g for malignan t neoplasm of breast Completed 201703/30/2018 Problem Code: V76.10; Problem Code Type: ICD-9; Not Available [facility] 2 22:11:26 Body mass index 30+ - obesity 827950871 Completed 201910/06/2020 Problem Code: Z68.35; Problem Code Type: ICD-10; Not Available [facility] 2 22:11:26 Influenz a with respirat ory manifest ation other than pneumoni a Completed 201612/05/2016 Problem Code: 487.1; Problem Code Type: ICD-9; Not Available [facility] 2 22:11:26 Notes:*Problem Name: 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 Procedures Surgical History Date Name Laterality Status Provider Name and Address Organization Details Recorded Time 10/09/19 24 Most Recent Mammogram completed [employer] 09/11/2024 08:19:48 01/03/20 18 Date of Last Pap Smear completed Selene Carlos [email or web address] 10/17/2022 09:51:11 10/06/19 17 hysterectomy completed Not Available [facility] 022 22:56:09 Appendectomy completed [employer] 09/20/2022 08:24:28 Imaging Results None recorded. Procedure Notes None recorded. Medical Equipment None Reported. Allergies No known drug allergies Medications Name Sig Start Date Stop Date Status Note LastModified by Organization Details LastModified Time celecoxib 200 mg capsule TAKE 1 CAPSULE (200 MG) BY ORAL ROUTE ONCE DAILY NEEDED FOR ARTHRITIS PAIN 09/20 completed Not Available Not Available Not Available fluoxetine 40 mg capsule TAKE 1 CAPSULE BY MOUTH ONCE DAILY 09/11 completed Not Available Not Available Not Available methocarbam ol 500 mg tablet Take 1 tablet(s) by mouth tid prn muscle spasm. 10/18 completed Not Available Not Available Not Available promethazin e-DM 6.25 mg-15 mg/5 mL oral syrup Take 1 teaspoon by mouth q 4 to 6 hr 10/06 completed Not Available Not Available Not Available azithromyci n 250 mg tablet TAKE 2 TABLETS BY MOUTH ON DAY 1, AND THEN TAKE 1 TABLET BY MOUTH ONCE A DAY ON DAY 2 THROUGH DAY 5 09/11 completed Not Available Not Available Not Available valacyclovi r 1 gram tablet 03/15 completed Not Available Not Available Not Available meloxicam 15 mg tablet TAKE 1 TABLET (15 MG) BY ORAL ROUTE ONCE DAILY NEEDED FOR HIP PAIN 2024 active Not Available Not Available Not Avai lable prednisone 20 mg tablet TAKE 1 TABLET BY MOUTH TWICE DAILY FOR 5 DAYS 09/11 completed Not Available Not Available Not Available Tamiflu 75 mg capsule Take 1 capsule(s ) by mouth bid for 5 days 10/06 completed Not Available Not Available Not Available ketorolac 30 mg/mL (1 mL) injection solution Inject 1 mL every 6 hours by intramusc ular route. 09/11 completed Not Available Not Available Not Available levothyroxi ne 75 mcg tablet Take 1 tablet every day by oral route in the morning. 2024 active Not Available Not Available Not Avai lable bisoprolol fumarate 5 mg tablet Take 1 tablet every day by oral route. active Not Available Not Available No t Available tamsulosin 0.4 mg capsule Take 1 capsule twice a day by oral route for 7 days, for renal stone. 03/15 completed Not Available Not Available Not Available benzonatate 100 mg capsule TAKE 1 CAPSULE BY MOUTH THREE TIMES DAILY NEEDED FOR COUGH active Not Available Not Available No t Available dexamethaso ne 2 mg tablet 03/15 completed Not Available Not Available Not Available levothyroxi ne 50 mcg tablet take 1 tablet (50 mcg) by oral route once daily on an empty stomach 30 minutes before breakfast 09/13 completed Not Available Not Available Not Available hydrocodone 7.5 mg-acetamin ophen 325 mg tablet Take 1 tablet every 6 hours by oral route as needed, for severe pain - kidney stone. 03/15 completed Not Available Not Available Not Available Prozac 20 mg capsule take 1 capsule (20 mg) by oral route once daily in the morning 03/15 completed Not Available Not Available Not Available gabapentin 300 mg capsule Take 1 capsule(s ) by mouth tid 04/03 completed Not Available Not Available Not Available furosemide 20 mg tablet take 1 tablet (20 mg) by oral route once daily in the AM prn swelling 09/20 completed Not Available Not Available Not Available ergocalcife rol (vitamin D2) 1,250 mcg (50,000 unit) capsule TAKE 1 CAPSULES BY ORAL ROUTE ONCE WEEKLY 2024 active Not Available Not Available Not Avai lable albuterol sulfate HFA 90 mcg/actuati on aerosol inhaler INHALE 2 PUFFS BY MOUTH EVERY 4 TO 6 HOURS NEEDED FOR SHORTNESS OF BREATH FOR WHEEZING active Not Available Not Available No t Available ketorolac 60 mg/2 mL intramuscul ar solution Inject 1 mL every 6 hours by intramusc ular route. 03/15 completed Not Available Not Available Not Available bromphenira mine-pseudo ephedrine-D M 2 mg-30 mg-10 mg/5 mL oral syrup Take 1 teaspoon by mouth q4h prn 10/10 completed Not Available Not Available Not Available cefdinir 300 mg capsule TAKE 1 CAPSULE BY MOUTH TWICE DAILY 09/11 completed Not Available Not Available Not Available loratadine 10 mg tablet take 1 tablet (10 mg) by oral route once daily 2021 active Not Available Not Available Not Avai lable amoxicillin 875 mg-potassiu m clavulanate 125 mg tablet take 1 tablet by oral route every 12 hours for 10 days 12/06 completed Not Available Not Available Not Available rosuvastati n 10 mg tablet Take 1 tablet every day by oral route, for cholester ol. 09/11 completed Not Available Not Available Not Available bupropion HCl XL 150 mg 24 hr tablet, extended release Take 1 tablet every day by oral route, for depressio n. 09/11 completed Not Available Not Available Not Available Ciclodan 8 % topical solution apply to the affected area(s) by topical route once daily preferabl y at bedtime or 8 hours before washing 09/20 completed Not Available Not Available Not Available Vitals Date Recorded Body height Body mass index (BMI) Body weight Body temperature Heart rate Oxygen saturation Oxygen saturation in Arterial blood by Pulse oximetry Systolic blood pressure Diastolic blood pressure Systolic blood pressure Diastolic blood pressure Systolic blood pressure Diastolic blood pressure Provider Name and Address Organization Details Last Updated DateTime 5 165.1 cm 37.2 kg/m2 353153. 26 g 98.1 [degF] 100 /min 94 % 94 % 146 mm[Hg] 69 mm[Hg] 153 mm[Hg] 77 mm[Hg] 145 mm[Hg] 71 mm[Hg] DAYNA LUGO [facility] [employer] 5 08:18:25 Date Recorded Body height Body mass index (BMI) Body weight Heart rate Oxygen saturation Oxygen saturation in Arterial blood by Pulse oximetry Systolic blood pressure Diastolic blood pressure Provider Name and Address Organization Details Last Updated DateTime 4 165.1 cm 36.3 kg/m2 25610.5 7 g 75 /min 94 % 94 % 114 mm[Hg] 72 mm[Hg] Nadya And[employer] 4 08:42:17 Date Recorded Body height Body mass index (BMI) Body weight Body temperature Heart rate Oxygen saturation Oxygen saturation in Arterial blood by Pulse oximetry Systolic blood pressure Diastolic blood pressure Provider Name and Address Organization Details Last Updated DateTime 4 165.1 cm 36.4 kg/m2 29721.0 1 g 97.9 [degF] 85 /min 93 % 93 % 124 mm[Hg] 82 mm[Hg] Nadya [employer] 4 13:39:14 Date Recorded Body height Body mass index (BMI) Body weight Heart rate Oxygen saturation Oxygen saturation in Arterial blood by Pulse oximetry Systolic blood pressure Diastolic blood pressure Systolic blood pressure Diastolic blood pressure Provider Name and Address Organization Details Last Updated DateTime 4 165.1 cm 36.6 kg/m2 18518.6 g 68 /min 93 % 93 % 135 mm[Hg] 79 mm[Hg] 129 mm[Hg] 84 mm[Hg] Nina Matos [employer] 4 09:35:49 Date Recorded Body height Body mass index (BMI) Body weight Body temperature Heart rate Oxygen saturation Oxygen saturation in Arterial blood by Pulse oximetry Systolic blood pressure Diastolic blood pressure Provider Name and Address Organization Details Last Updated DateTime 4 165.1 cm 37.1 kg/m2 621274. 1 g 98.6 [degF] 67 /min 95 % 95 % 131 mm[Hg] 76 mm[Hg] DAYNA LUGO [employer] 4 17:22:47 Social History Question Answer Notes LastModified by Organizat ion Details LastModified Time Tobacco Smoking Status Current Every Day Smoker Selene villaseñor [employer] 10/17/2022 09:49:27 Do You Have An Advance Directive? No Information n ot available 09/20/2022 Is Your Home Air Conditioned? Yes Information not available 09/20/2022 Are You Blind Or Do You Have Difficulty Seeing? No Information n ot available 09/29/2023 In The 14 Days Before Symptom Onset, Have You Had Close Contact With A Laboratory-confirm ed COVID-19 While That Case Was Ill? No Information n ot available 09/20/2022 In The 14 Days Before Symptom Onset, Have You Had Close Contact With A Person Who Is Under Investigation For COVID-19 While That Person Was Ill? No Information not available 09/20/2022 Have You Been To An Area Known To Be High Risk For COVID-19? No Information not available 09/20/2022 Are You Deaf Or Do You Have Serious Difficulty Hearing? No Information not available 09/29/2023 What Type Of Diet Are You Following? REGULAR Information n ot available 09/20/2022 Who Is Your Employer? [employer] Information not available 09/20/2022 Have There Been Any Changes To Your Family Or Social Situation? No Information no t available 09/20/2022 Are There Any Guns Present In Your Home? No Information not available 09/20/2022 Do You Have A Medical Power Of Dehydrogenation Converter Operator? No Information not available 09/20/2022 What Was The Date Of Your Most Recent Tobacco Screening? 09/11/2024 Information not available 09/11/2024 What Is Your Current Pack Years? 30ormorepacky ears Information not available 09/20/2022 What Is Your Relationship Status? Information not available 09/20/2022 Do You Use Your Seat Belt Or Car Seat Routinely? Yes Information not available 09/20/2022 Do You Have Smoke And Carbon Monoxide Detectors In Your Home? Yes Information not available 09/20/2022 Are You Passively Exposed To Smoke? No Information no t available 09/20/2022 Are There Any Smokers In Your House? No Information not available 09/20/2022 How Much Tobacco Do You Smoke? 1 PPD Information not available 09/20/2022 Do You Use Sunscreen Routinely? No Information not available 09/20/2022 How Many Years Have You Smoked Tobacco? 34 Information not available 09/20/2022 Have You Recently Traveled Abroad? No Information not available 09/20/2022 Do You Have Difficulty Walking Or Climbing Stairs? No Information not available 09/29/2023 Are You Currently In School? No Information not available 09/20/2022 Do You Have Any Dietary Restrictions? No Information not available 09/20/2022 Sex: Female Functional Status Question Answer Note LastModified by Organizat ion Details LastModified Time Do you use any illicit or recreational drugs? No Information not available 09/20/2022 Do you or have you ever used any other forms of tobacco or nicotine? No Information not available 09/20/2022 What is your level of alcohol consumption? None Information not available 09/20/2022 Are you currently employed? Yes Information not available 09/20/2022 Do you have transportation difficulties? No Information not available 09/20/2022 Do you have difficulty doing errands alone? No Information not available 09/29/2023 Are you able to care for yourself? Yes Information not available 09/20/2022 Do you have difficulty dressing or bathing? No Information not available 09/29/2023 Mental Status Question Answer Note LastModified by Organization D etails LastModified Time Do you have difficulty concentrating, remembering or making decisions? No Information no t available 09/29/2023 Family History Relationship Description Onset Age of this Age Resolved Age Notes LastModified by Organization Details LastModified Time Unspecified Relation Family history of malignant neoplasm [email or web address] Not available 2022 09:49:08 Unspecified Relation Family history of Hypertension [email or web address] Not available 09:49:11 Unspecified Relation Family history of Polycystic kidney [email or web address] Not available 2022 09:49:14 Unspecified Relation Family history of breast cancer [email or web address] Not available 2022 09:49:16 Medical History Condition Response Coronary Artery Disease N Other N Gout N Kidney Stones N Blood Diseases N Hyperthyroidism N Breast Cancer N Blood Transfusion N Emergency room visit since last appointm ent. N Hypothyroidism N Lung Disease N Dermatologic Disorders N COPD N Depression N Developmental or Behavioral Disorders N Defects or Inherited Disease N Breast Problem N Difficulty Swallowing N Anesthesia Complications N History of STI N Meniere's disease N Anxiety Disorder N Muscle, Joint, or Bone Problems N Autoimmune disease N Vision or Eye Problems N Arthritis N Polyps N Infertility N Mental Disorder N Congenital Anomalies N Acid Reflux (GERD) N Cancer N Stroke N Neurologic/Epilepsy N Endometriosis N Bladder or Kidney Problems N High Cholesterol N Liver Disease N Psychiatric/Mental Health Condition N Organ Transplant N Fibromyalgia N Dialysis N Schizophrenia N Headaches N Kidney Disease N Allergies/Hayfever N Heart Problems N Ear or Hearing Problems N Hospitalizations N Learning Disorder N Artificial Joints N Thyroid Problems N GI Problems N Acne N ADD/ADHD N Eating Disorder N Anemia N Constipation N Mental Illness N Ovarian Cancer N Diabetes N Bedwetting N Hepatitis/Liver Disease N Tuberculosis N Eczema N Diverticulitis N Abuse/Domestic Violence N Asthma N Trauma/Violence N Substance Abuse N Reflux/GERD N Depression/ depression N Hepatitis N Heart Disease N Pulmonary Embolism N Tourette Syndrome N Pre-Eclampsia N Hypertension N Chronic Ear Infections N Osteoporosis N Chicken Pox N Autism Spectrum Disorder (ASD) N Thrombophilias N Gynecological History Statement/Question Response Date of Last Pap Smear 01/02/2018 Most Recent Mammogram 10/09/2023 Obstetrics History GPAL:G 0 P 0 0 0 0 Immunizations Vaccine Type Date Status Note Provider Nam e and Address Organization Details Recorded Time COVID-19 vaccine, vector-nr, rS-Ad26, PF, 0.5 mL 12/10/2020 completed Not Available [facility] 23:01:24 Hep B, adult 05/25/1999 completed DAYNA MYNEA R null, [facility] 09/20/2022 08:14:16 COVID-19 vaccine, vector-nr, rS-Ad26, PF, 0.5 mL 12/02/2020 completed DAYNA MYNEAR null, [facility] 09/20/2022 08:14:16 Hep B, adult 12/23/1998 completed DAYNA MYNEA R null, [facility] 09/20/2022 08:14:16 Hep B, adult 11/11/1998 completed DAYNA villaseñor [facility] [employer] 09/20/2022 08:14:16 Past Encounters Encounter ID Performer Location Encounter Start Date Encounter Closed Date Diagnosis/Indication Diagnosis SNOMED-CT Code Diagnosis ICD10 Code Diagnosis Note [id number] Meliza Liriano [address] 09/20/2022 08:03:03 09/20/2022 08:51:06 Hypothyroidism 18234485 E03.9 Idiopathic osteoarthritis 811671563 M16.11 Bilateral Hips Mixed hyperlipidemia 267 614433 E78.2 DASH diet, exercise and weight loss encouraged . Major depr essive disorder 790662715 F32.9 Essential hypertension 25086933 I10 Bisprolol 5 mg daily. Vitamin D deficiency 347 30910 E55.9 Screening mammography of bilateral breasts 1980143787 76483 Z12.31 [id number] [place] [address] 10/19/2022 10:14:09 10/19/2022 10:39:27 Essential hypertension 59095345 I10 Continue Bisoprolol . DASH diet, exercise and weight loss encouraged . Continue use of CPAP for EMILY also. [id number] [place] [address] 03/15/2023 09:26:09 03/15/2023 10:21:19 Hypothyroidism 55961116 E03.9 Essential hypertension 95181655 I10 Continue current medication s, DASH diet, exercise and weight loss encouraged . Smoking cessation again strongly emphasized . Osteoarthritis of hip 23 6886112 M16.9 Major depr ession, single episode 12150929 F32.9 Increase Prozac 40 mg daily, she was encouraged to consider counseling here. Tobacco de pendence caused by cigarettes 1811411431 4674818 F17.210 Body mass index 30+ - obesity 258182282 Z68.36 [id number] [place] [address] 08/08/2023 11:04:54 08/08/2023 11:54:49 Rib pain 147517457 R07.81 RICE, NSAIDS, TCDB, obtain x rays of ribs and chest. Avoid lifting more than 5 pounds and exertion. [id number] Meliza Liriano [address] [address] 09/13/2023 08:34:05 09/13/2023 11:14:02 General examination of patient 972142470 Z00.00 Counseled regarding contracept jose options, and need for contracept ion until no menses for 1 year. BSE reviewed and recommende d . Reviewed calcium needs, exercise, and prevention of osteoporos is . Reviewed normal perimenopa usal transition . Mammogram recommende d yearly . Colonoscop y recommende d at age 50. Hypothyroidism 87649237 E03.9 Continue Synthroid. Mixed hyperlipidemia 267 640904 E78.2 DASH diet, exercise and weight loss encouraged . Vitamin D deficiency 347 19269 E55.9 Obstructiv e sleep apnea syndrome 12165644 G47.33 Continue CPAP nightly Major depr ession, single episode 36516356 F32.9 Continue Prozac Diabetes m ellitus screening 628750277 Z13.1 Idiopathic osteoarthritis 129656503 M16.11 Bilateral Hips, continue prn meloxicam and home stretching program. Screening mammography of bilateral breasts 8933394235 88614 Z12.31 Essential hypertension 06811719 I10 Continue current medication s, DASH diet, exercise and weight loss encouraged . Smoking cessation again strongly emphasized . Body mass index 30+ - obesity 122499615 Z68.36 Tobacco de pendence caused by cigarettes 2853553479 7196595 F17.210 Smoking cessation education provided. [id number] Meliza Liriano [facility] [address] [place] [address] 09/29/2023 13:33:22 09/29/2023 14:39:19 Low back pain 576019713 M54.50 Right flank pain 2725112 09 R10.9 Suspect right ureteral stone. Off work until 10/03/23. I suspect I see a right ureteral stone today on KUB, will await radiology reading. Start pain relief and flomax, inst to push water intake with lemon. She was urged to report to ED if sx progress over the weekend, if sx are not resolved in 2 days she is to call me and will obtain CT. UA NEG for bacteria, does have moderate blood noted. Renal colic 7024495 N23 [id number] [place] [address] 03/15/2024 09:26:39 03/15/2024 10:49:22 Prediabetes 412513972 R73.03 Hypothyroidism 99158795 E03.9 Continue Synthroid. Mixed hyperlipidemia 267 667551 E78.2 DASH diet, exercise and weight loss encouraged . Tobacco de pendence caused by cigarettes 8974250524 0564625 F17.210 Smoking cessation education provided. Vitamin D deficiency 347 74699 E55.9 Major depr ession, single episode 30286679 F32.9 Continue Prozac and add Wellbutrin due to depressive sx. Obstructiv e sleep apnea syndrome 90568537 G47.33 Continue CPAP nightly, needs new order for CPAP supplies, she struggles with mask. Essential hypertension 45798037 I10 Continue current medication s, DASH diet, exercise and weight loss encouraged . Smoking cessation again strongly emphasized . Osteoarthritis of hip 23 8175293 M16.9 [id number] [place] [address] 05/28/2024 17:02:34 06/24/2024 13:36:20 Intermittent palpitations 788844760 R00.2 Obtain labs and holter monitor. She was advised that if sx persist or progress, to proceed to ER. Rest, stress reduction, healthy diet with adequate hydration emphasized . Headache 02934585 R51.9 Hypothyroidism 89386517 E03.9 Prediabetes 343599567 R7 3.03 [id number] [place] [address] 09/11/2024 08:03:42 09/11/2024 09:01:10 Prediabetes 595356732 R73.03 A1c remains stable. Low carb diet, physical activity, and weight loss encouraged . Thyroid fu nction tests abnormal 249191431 R94.6 Continue Synthroid. Essential hypertension 11632952 I10 Restart Bisoprolol . Pulse rate 100 today. Body mass index 30+ - obesity 920491222 Z68.36 Tobacco de pendence caused by cigarettes 9419156692 2550324 F17.210 Smoking cessation education provided. Screening mammography of bilateral breasts 8462202566 94523 Z12.31 Screening for malignant neoplasm of colon 087562038 Z12.11 Health Concerns Section Related Observation LastModified by Organization Detai ls LastModified Time None Recorded Concern Status LastModified by Organization Details LastModified Time None Recorded Advance Directives Directive N: Payers Insurance Date Sequence Insurance Name Policy Number Policy Franklin Covered Member ID Franklin Member ID Guarantor Name 09/16/2024 1 [place] [id number] Deyanira Garcia [id number] Deyanira Garcia Notes Date Note Type Note Provider Name and Address Organization Details Recorded Time 4 text/html Annual WellnessReported bypatient.Diet and Nutrition:diet is high in salt;diet is high in fat, low in fiber; discussed vitamin and supplement use; discussed portion control; discussed maintaining calcium balance; discussed diet improvement Fracture Risk:no history of fractures; no recent explained fracture Physical Activity:does not exercise on a regular basis; discussed weightbearing activities Additional Lifestyle Factors:no alcohol intake;tobacco use Depression Risk:history of mood disorders;history of depression Hearing:no loss of hearing Vision:no vision problemsAnxiety/DepressionR eported bypatient.Severity:denies suicidal ideations; symptoms improved Duration:chronic Onset/Timing:gradual Context:major life stressors;tobacco use Modifying Factors:social support; medications as directed; selective serotonin reuptake inhibitor (SSRI) Associated Symptoms:denies homicidal ideations; no significant weight loss; no visual/auditory hallucinations; no delusions; no shortness of breath;anxiety;anxiety with muscle tensionNotes:States her mood is improved, she bought her own home and broke up with her SO.Hip(s)Reported bypatient.Location:[facility] Quality:aching Severity:worsening; moderate; pain level 6/10; worst pain 8/10 Timing:frequent Duration:chronic; days; 3 years Context:overuse Aggravating Factors:walking; lifting; bending/squatting; weightbearing; exercise; going from sit to stand; upstairs Alleviating Factors:rest; stretching; NSAIDs Associated Symptoms:no weakness; no numbness; no tingling; no swelling; no redness; no warmth; no ecchymosis; no catching/locking; no popping/clicking; no buckling; no grinding; no instability; no drainage; no fever; no chills; no change in bowel/bladder habits Previous Surgery:none Prior Imaging:x ray Previous Injections:none Previous PT:did not help Working:regular duty Work Related:noNotes:Patient has been treated intermittently with oral NSAIDs for the past 4 years for bilateral degenerative joint disease of the hips. 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 She states that the pain is at her baseline.HyperlipidemiaRepo rted bypatient.Duration:chronic Control:not at goal Adherence to Treatment Plan:does not follow recommended diet;does not exercise;does not take medications as prescribed Complications:no coronary artery disease; no peripheral artery disease; no cardiovascular disease Risk Factors:hypertension;smokin g;obesity;low HDL level;high lipoprotein(a) level;consumption of saturated fats and trans-fatty acidsHypertension F/UReported bypatient.Medications:takin g medications as directed; no side effects from medication; checks blood pressure at home, range: (130/75) Lifestyle:regular exercise; limits sodium intake; has worked to lose some weiight Associated Symptoms:no dizziness; no lightheadedness; no chest pain; no shortness of breath; no palpitations; no edema; no calf pain with exertion; no headacheNotes:Patient also has obstructive sleep apnea and is compliant with CPAP nightly. States it makes a significant improvement in her fatigue level.HypothyroidReported bypatient.Reason for Visit:TSH check/labs Duration:>12 months Associated Symptoms:fatigue Treatment:taking medication as prescribed Meliza Liriano APRN [address] [place] [address], [phone], [facility] [employer] 09/17/2023 17:32:44 4 text/html Lower Urinary Tract Symptoms (LUTS)Reported bypatient.Location:right; right flank Quality:stabbing; pressure Severity:worsening; severe Onset/Timing:constant Duration:acute; < 1 week Context:denies excessive fluid intake; denies new medication treatment;excessive caffeine intake Alleviating Factors:Finds Nothing helpful Aggravating Factors:caffeine; smoking Associated Symptoms:flank pain(right);low back pain;nausea;urgency;costove rtebral angle tenderness Meliza Liriano, AGRON[employer]Y TECHNICIAN [address] [place], [address], [facility] [employer]. 10/01/2023 16:14:00 4 text/html Anxiety/DepressionReported bypatient.Severity:denies suicidal ideations;mood worse Duration:chronic Onset/Timing:gradual Context:major life stressors;tobacco use Modifying Factors:social support; medications as directed; selective serotonin reuptake inhibitor (SSRI) Associated Symptoms:denies homicidal ideations; no significant weight loss; no visual/auditory hallucinations; no delusions; no shortness of breath;anxiety;anhedonia;so cial withdrawal;decreased effectiveness/productivity; decreased energyNotes:Hip(s)Reported bypatient.Location:[facility] Quality:aching Severity:worsening; moderate; pain level 6/10; worst pain 8/10 Timing:frequent Duration:chronic; days; 3 years Context:overuse Aggravating Factors:walking; lifting; bending/squatting; weightbearing; exercise; going from sit to stand; upstairs Alleviating Factors:rest; stretching; NSAIDs Associated Symptoms:no weakness; no numbness; no tingling; no swelling; no redness; no warmth; no ecchymosis; no catching/locking; no popping/clicking; no buckling; no grinding; no instability; no drainage; no fever; no chills; no change in bowel/bladder habits Previous Surgery:none Prior Imaging:x ray Previous Injections:none Previous PT:did not help Working:regular duty Work Related:noNotes:Patient has been treated intermittently with oral NSAIDs for the past 4 years for bilateral degenerative joint disease of the hips. 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 She states that the pain is at her baseline.HyperlipidemiaRepo rted bypatient.Duration:chronic Control:not at goal Adherence to Treatment Plan:does not follow recommended diet;does not exercise;does not take medications as prescribed Complications:no coronary artery disease; no peripheral artery disease; no cardiovascular disease Risk Factors:hypertension;smokin g;obesity;low HDL level;high lipoprotein(a) level;consumption of saturated fats and trans-fatty acidsHypertension F/UReported bypatient.Medications:takin g medications as directed; no side effects from medication; checks blood pressure at home, range: (130/75) Lifestyle:regular exercise; limits sodium intake; has worked to lose some weiight Associated Symptoms:no dizziness; no lightheadedness; no chest pain; no shortness of breath; no palpitations; no edema; no calf pain with exertion; no headacheNotes:Patient also has obstructive sleep apnea and is compliant with CPAP nightly. States it makes a significant improvement in her fatigue level.HypothyroidReported bypatient.Reason for Visit:TSH check/labs Duration:>12 months Associated Symptoms:fatigue Treatment:taking medication as prescribed Hx Vit D deficiency Meliza Liriano APRN [address] [place] [address], [phone], [employer]. 03/24/2024 18:18:44 4 text/html HeadacheReported bypatient.Location:band around head Quality:not the worst headache ever;not similar to previous headaches;throbbing Severity:moderate Duration:constant; has noted for 3 ; <7 days/month Onset/Timing:gradual; still present; occur every few weeks Context:not related to trauma; triggered by life events; triggered by stress; poor sleep/recent changes in sleep Aggravating factors:loud noise; visual stimuli or light Associated Symptoms:no nausea; no vomiting; no fever; no nasal congestion/discharge;photop hobia;dizziness C/o recent episodes of anxiety with palpitations, sweating, dizzyness. Her BP and glucose have been normal during these events. C/o BAIRD for 3 days. Meliza Liriano APRN [address] [place], [address], [employer]. 06/30/2024 17:58:37 5 text/html HyperlipidemiaReported bypatient.Duration:chronic Control:not at goal Adherence to Treatment Plan:does not follow recommended diet;does not exercise;does not take medications as prescribed Complications:no coronary artery disease; no peripheral artery disease; no cardiovascular disease Risk Factors:hypertension;smokin g;obesity;low HDL level;high lipoprotein(a) level;consumption of saturated fats and trans-fatty acidsHypertension F/UReported bypatient.Medications:takin g medications as directed; no side effects from medication; checks blood pressure at home, range: (130/75) Lifestyle:regular exercise; limits sodium intake; has worked to lose some weiight Associated Symptoms:no dizziness; no lightheadedness; no chest pain; no shortness of breath; no palpitations; no edema; no calf pain with exertion; no headacheNotes:Patient also has obstructive sleep apnea and is NOT compliant with CPAP.HypothyroidReported bypatient.Reason for Visit:TSH check/labs Duration:>12 months Associated Symptoms:fatigue Treatment:taking medication as prescribed Hx Vit D deficiency and Prediabetes.She reports some resolution of her depressive sx and admits she has stopped taking antidepressants, doesn't think she needs them.She continues to smoke.Has not taken her Bisoprolol in some weeks. Meliza Liriano, AGRONOMY TECHNICIAN [address] [facility], [place], [address], [facility] [employer] 09/15/2024 20:57:57 OBGyn Episode No OBEpisode recorded.
--- OUTSIDE RECORDS SUMMARY | 2025-01-31 14:47 | XMS_ITS | Encounter Summary ---
Author Organization [facility] Address [address] [place] [address] Care Team Providers Care Admissions Recruiter Name Role Phone Meliza Liriano APRN Primary Care Provider + [phone] Anup Sam MD Unavailable Sharon Valle Unavailable [phone] Karolina Mckay RN Unavailable [phone] Douglas Shepherd MD Unavailable [phone] Encounter Details Date Type Department Care Team (Late st Contact Info) Description 08/08/2018 [facility] OTTR Encounter Historical OTTR [address] [place] [address] Provider, MD Lawrence [address] [place] [address] Social History Tobacco Use Types Packs/Day Years Used Date Smoking Tobacco: Never Assessed Comments Unknown Sex and Gender Information Value Date Recorded Sex Assigned at Not on file Legal Sex Female 6:56 PM EDT Gender Identity Not on file Sexual Orientation Not on file documented as of this encounter Miscellaneous Notes * Progress Notes - Karolina Mckay, RN - 03/19/2019 1:55 PM EDT Late entry: spoke w. pt. after 03/08 TB discussion to advise of plan for 1 year f/u. She confirmed understanding. Asked whether she needs to be scheduled for later in the year d/t insurance. She says 12 month f/u will not be a problem. Orders in [facility]. -Note to to schedule 1 year labs, MRI w/ Eovist, and visit w/ Dr. Sam. -Note to RG for update. * Progress Notes - Sharon Valle - 03/04/2019 2:50 PM EDT Ms. Garcia called me back. I let her know that Dr. Sam was going to review her case on TB. She understood and I let her know that we would give her a call probably Monday to review * Progress Notes - Sharon Valle - 03/04/2019 1:50 PM EDT Ms. Garcia is added onto the 03/08 TB agenda - attempted to contact Ms. Garcia to advise her of the planwith no answer - LVM requesting call back - will set NFU to call her back. * Progress Notes - Anup Sam - 03/01/2019 2:46 PM EDT Reviewed MRI. Patient has stable liver lesions, whcih appear to be hepatic adenomas. However, please patient on tumor board next week. Please let patient know we will review her case. * Progress Notes - Sharon Valle - 03/01/2019 9:44 AM EDT Note to Dr. Sam for review: 02/27/19 MRI result IMPRESSION: 5 nodules and masses throughout the liver which show arterial phase hyperenhancement, washout, no uptake on hepatobiliary phase imaging, which are mildly T2 hyperintense. They show diffuse intralesional microscopic fat. 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 They are all unchanged in size compared to the prior examination. Resolution of the diffuse hepatic steatosis. * Progress Notes - Karolina Mckay RN - 02/27/2019 4:39 PM EDT Pt. seen in clinic today by Dr. Sam prior to MRI. Note to [facility] to review MRI for plan. AFP not yet resulted. MRI Impression below. Redemonstration of numerous T2 hyperintense fat-containing hepatic lesions which are essentially unchanged from prior with no new lesions. Findings are once again consistent with hepatic adenomatosis. Correction: this is 2018 MRI impression. Today's MRI and AFP are still pending and will need to be reviewed. * Progress Notes - Desiree Newton - 02/06/2019 12:42 PM EDT LVM re: 02/27/19 1:15 pm arrival time for Labs/MBS/MRI. Requested confrimation call. * Progress Notes - ProviderLawrence MD - 01/29/2019 1:23 PM EDT DOS 02/27/2019 MRI Abd w wo constrast Pt has [employer] PPO per IVR [id number] NPR updating IAuth and nurse. * Progress Notes - Desiree Newton - 01/29/2019 11:07 AM EDT LVM 02/27/19 1:15 pm arrival time for Labs/MBS/MRI. Appt sched mailed, requested return call for confirmation. Note to for 02/27/19 MRI precert. * Progress Notes - Karolina Mckay RN - 09/19/2018 8:28 PM EST Received VM from patient, called back and LVM w/ plan for 6 month f/u. Asked for call back if she'dlike to discuss further. * Progress Notes - Karolina Mckay RN - 09/11/2018 1:44 PM EST Reviewed results w/ Dr. Sam. Plan is to repeat in 6 months: labs, MRI w/ Eovist, and clinic visit.LVM for pt. requesting call back to discuss. Note to CT to schedule. * Progress Notes - ProviderLawrence MD - 08/08/2018 1:25 PM EST DOS 09/05/2018 mri abd wwo liver lesions [facility] Pt has [facility] [place] NPR, updating IAuth and nurse, * Progress Notes - Lawrence Gonzalez MD - 07/30/2018 2:57 PM EST Pt. LVM returing my call Monday, I was out of the office. Called pt. back LVM w/ appt. info again, asked for call back to confirm appt. * Progress Notes - ProviderLawrence MD - 07/27/2018 11:17 AM EST Called pt. LVM w/ appt. info. asked for call to confirm and that we could schedule visit w/ MBS on 09/19. Spoke w/ pt. other contact, Danyelle- sister, asked her to have pt. call me back. Mailed appt. schedule. Note ot TH for 09/05 MRI precert. * Progress Notes - Lawrence Gonzalez MD - 07/13/2018 12:40 PM EST Pt. scheduled for 6 month f/u on 09/05; labs @ 3pm, MRI @ 5:30pm [facility] (NPO x 6 hours, 4:30pm arrival). Called pt. LVM asking for call back. Can scheduled f/u w/ MBS on 09/19. * Progress Notes - Lawrence Gonzalez MD - 07/10/2018 1:02 PM EST Requested [facility] MRI via radiology sharepoint. * Progress Notes - Karolina Mckay RN - 03/16/2018 12:[address] Sam called pt. and LVM. Plan is for f/u in 6 months, w/ labs, MRI, and surgeon visit. MBS stated this in message. Note to CT to precert, schedule, and notify pt. * Progress Notes - Karolina Mckay RN - 03/15/2018 11:18 AM EDT 03/[address] Sam. Pt. has multiple benign hepatic adenomas, will need 6 or 12 month f/u. Called pt. to notify. Advised that MBS will call to f/u tomorrow and decide on POC. Will drop orders at that time. Pt. asks that he leaves a message if she doesn't answer, has poor cell medical reception specialist where she lives. * Progress Notes - Lawrence Gonzalez MD - 03/09/2018 2:34 PM EDT DOS 03/13/2018 Pt. scheduled for MRI on 03/13 @ 6pm [facility] (NPO x 6 hours, 5pm arrival). Pt. [place] [facility] [id number] [place] long as outpt. NPR. Updated info in IAuth and notfifed nurse and updated sharepoint * Progress Notes - Lawrence Gonzalez MD - 03/06/2018 10:26 AM EDT Pt. scheduled for MRI on 03/13 @ 6pm [facility] (NPO x 6 hours, 5pm arrival). Pt. [place] [facility]; [place] [id number] as long as outpt. NPR. Called pt. notified and confirmed appt. Added precert info toiAuth. * Progress Notes - Karolina Mckay RN - 03/05/2018 3:51 PM EDT Added comment to MRI order for Eovist. Note to CT to precert, schedule, and notify pt. She is very anxious and would like MRI as soon as possible, has been told by referring that she may have metastatic cancer. She's available any day or time, including weekends. Labs all WNL. * Progress Notes - Anup Sam - 03/05/2018 3:[address] scan with radiology. Radiology feels that liver lesions are likely benign, but unclear etiology based on CT. Will plan on ordering MRI with EOVIST of liver. I have called patient and explained plan of care and she is in agreement. * Progress Notes - Karolina Mckay RN - 03/02/2018 2:10 PM EDT Pt. seen in clinic today by Dr. Sam. Added to TB agenda for 03/09, knows to expect call by EOD 03/12. Pt. may need MRI. Labs WNL. Pt. given my contact information and knows to call w/ any questions prior to 03/12. * Progress Notes - Lawrence Gonzalez MD - 02/27/2018 4:18 PM EDT Pt. scheduled for ICE 03/02; labs @ 1:30pm, visit at 2pm. REK confirmed appt. w/ pt. * Progress Notes - Danyelel Coulter - 02/27/2018 4:13 PM EDT Spoke to Ms Garcia - scheduled Surgical ICE for 03/02 at 1:30pm. Provided directions and instructions over the phone. Her imaging is at [facility] and disc will be burned for her to bring with herto the appointment. Notified referring - they are faxing records. * Progress Notes - Danyelle Coulter - 02/27/2018 3:36 PM EDT Referral from Dr Shepherd - 44 yo female with liver lesions. Request from [facility] to schedule her for 03/02 - called Dr Shepherd office - [facility] requesting records to be faxed. documented in this encounter Plan of Treatment Not on file documented as of this encounter Procedures Procedure Name Priority Date/Time Associated Diagnosis Comments OTTR LAB RESULTS (MANUAL) Routine 02/27/2019 1:27 PM EDT OTTR LAB RESULTS (MANUAL) Routine 09/05/2018 3:15 PM EST documented in this encounter Results * OTTR LAB RESULTS (MANUAL) (02/27/2019 1:27 PM EDT) External Estimated GFR 95.75 EXTERNAL LAB 02/27/2019 1:27 PM EDT Narrative EXTERNAL LAB - 02/27/2019 3:31 PM EDT Automated LAB Interface us Historical Provider LAB BLOOD ORDERABLES Yuki l Result EXTERNAL LAB * OTTR LAB RESULTS (MANUAL) (09/05/2018 3:15 PM EST) External Estimated GFR 87.08 EXTERNAL LAB 09/05/2018 3:15 PM EST Narrative EXTERNAL LAB - 09/05/2018 5:04 PM EST Automated LAB Interface us Historical Provider LAB BLOOD ORDERABLES Yuki l Result EXTERNAL LAB documented in this encounter Visit Diagnoses Not on filedocumented in this encounter Care Teams Admissions Recruiter Relationship Specialty Start Date End Date Meliza Liriano, REGIONAL EXTENSION SERVICE SPECIALIST [address] [phone] PCP - General 01/08/21 Anup Sam MD [address] [place] [phone] Surgeon Transplant Surgery 03/01/21 [place] [address] Surgical Navigator Transplant Surgery 03/01/21 Karolina Mckay RN [facility] [address] [place] [address] Surgical Navigator Transplant Surgery 05/11/21 Douglas Shepherd MD [address] [place] [address] [id number] Referring Physician Gastroenterology 11/05/21 documented as of this encounter
--- OUTSIDE RECORDS SUMMARY | 2025-01-31 14:48 | XMS_ITS | Encounter Summary ---
Author Organization [facility] Address [address] [place] [address] Care Team Providers Care Cabinet Finisher Name Role Phone Meliza Liriano APRN Primary Care Provider + [phone] Anup Sam MD Unavailable Sharon Valle Unavailable [phone] Karolina Mckay RN Unavailable [phone] Douglas Shepherd MD Unavailable [phone] Encounter Details Date Type Department Care Team (Late st Contact Info) Description 04/01/2020 [facility] OTTR Encounter Historical OTTR [address] [place] [address] Sharon Val[address] [phone] Social History Tobacco Use Types Packs/Day Years Used Date Smoking Tobacco: Never Assessed Comments Unknown Sex and Gender Information Value Date Recorded Sex Assigned at Not on file Legal Sex Female 6:56 PM EDT Gender Identity Not on file Sexual Orientation Not on file documented as of this encounter Miscellaneous Notes * Progress Notes - Desiree Newton - 01/21/2021 3:35 PM EDT Called , [facility] asking Ms. Garcia to call me about her February. I had her scheduled for anMRI on 03/24/21 and when i went to sched the remaining portion of her appt's, it was moved to 03/30/21. I asked her to call me so we could discuss when she would be available 03/24/21 or 05/19/21 [facility] clinic days. * Progress Notes - Sharon Valle - 04/01/2020 2:16 PM EDT Spoke with Ms. Garcia this afternoon, I let her know that Dr. Sam had reviewed her images and labs. Everything is stable and he would like to follow up in one year. Patient agreed to the plan. -Orders in [facility], Note to Desiree for scheduling 1 year follow up MRI, labs and visit. * Progress Notes - Anup Sam - 03/31/2020 3:25 PM EDT Reviewed labs and imaging. Stable adenomas and labs are WNL. Repeat imaging and labs in one year. * Progress Notes - Sharon Valle - 03/26/2020 1:33 PM EDT Note to Dr. Sam for review of 03/25 MRI: IMPRESSION: Stable number, size and distribution of multiple presumed hepatic adenomas. CRITICAL RESULT: No. COMMUNICATION: Per this written report. Verified by: ALEXUS ZACARIAS M.D. on Mar 25 2020 11:00A * Progress Notes - Desiree Newton - 03/25/2020 7:19 AM EDT Mrs. Garcia called this morning to confirm getting testing this am and knows to expect a call with POC. * Progress Notes - Desiree Newton - 03/24/2020 3:[address] Sam has 2 kidney txp's that he will be doing tomorrow 03/25/20, so he will not be able to see Mrs. Garcia. Called , LVM asking her to please continue to get her Labs and MRI at [facility] and he would review results and call with a POC. * Progress Notes - ProviderLawrence MD - 02/26/2020 8:13 AM EDT DOS 03/25/2020 MRI Abdomen W W/O Contrast [id number] Pt has [employer] PPO NPR updating IAuth and nurse. * Progress Notes - Desiree Newton - 02/25/2020 12:21 PM EDT Mrs. Garcia called back and confirmed 03/25/20 appt. * Progress Notes - Desiree Newton - 02/12/2020 9:39 AM EDT Called [phone], LVM Ms. Garcia is scheduled 03/25/20 7am arrival time for 1 yr fu Labs/MRI @ [facility] fu. Appt sched mailed. Note to for precert: 03/25/20 MRI Abdomen W W/O Contrast [id number] documented in this encounter Plan of Treatment Not on file documented as of this encounter Procedures Procedure Name Priority Date/Time Associated Diagnosis Comments OTTR LAB RESULTS (MANUAL) Routine 03/25/2020 7:26 AM EDT documented in this encounter Results * OTTR LAB RESULTS (MANUAL) (03/25/2020 7:26 AM EDT) External Estimated GFR 76.20 EXTERNAL LAB 03/25/2020 7:26 AM EDT Narrative EXTERNAL LAB - 03/25/2020 12:42 PM EDT Automated LAB Interface us Historical Provider LAB BLOOD ORDERABLES Yuki jose luis Result EXTERNAL LAB documented in this encounter Visit Diagnoses Not on filedocumented in this encounter Care Teams Cabinet Finisher Relationship Specialty Start Date End Date Meliza Liriano APRN [address] [phone] PCP - General 01/08/21 Anup Sam MD [address] [place] [phone] Surgeon Transplant Surgery 03/01/21 [place] [address] Surgical Navigator Transplant Surgery 03/01/21 Karolina Mckay RN [facility] [address] [place] [address] Surgical Navigator Transplant Surgery 05/11/21 Douglas Shepherd MD [facility] [place] [address] Referring Physician Gastroenterology 11/05/21 documented as of this encounter
--- OUTSIDE RECORDS SUMMARY | 2025-01-31 14:48 | XMS_ITS | Clinical Summary ---
Author Organization [facility] Address [address] [place] [place] [address] Care Team Providers Care Co Founder And Chief Strategy Officer Name Role Phone Meliza Liriano APRN Primary Care Provider + [phone] Anup Sam MD Unavailable Sharon Valle Unavailable [phone] Karolina Mckay RN Unavailable [phone] Douglas Shepherd MD Unavailable [phone] Allergies No known active allergies Medications ergocalciferol 1.25 MG (44151 UT) capsule TAKE 1 CAPSULES BY ORAL ROUTE ONCE WEEKLY 1 Active levothyroxine (Synthroid, Levoxyl) 50 MCG tablet TAKE 1 TABLET BY MOUTH ONCE EVERY MORNING ON AN EMPTY STOMACH 30 MINUTES BEFORE BREAKFAST 1 Active meloxicam (Mobic) 15 MG tablet Take by mouth 1 (one) time each day. 1 Active bisoprolol (Zebeta) 5 MG tablet Take by mouth 1 (one) time each day. Active FLUoxetine (PROzac) 60 MG tablet Take by mouth 1 (one) time each day. Active Social History Tobacco Use Types Packs/Day Years Used Date Smoking Tobacco: Every Day Smokeless Tobacco: Never Tobacco Cessation:Ready to Q uit: Not Asked; Counseling Given: Not Answered PHQ-2 Answer Date Recorded Patient Health Questionnaire-2 Score 1 06/21/2023 PHQ-2A Answer Date Recorded Patient Health Questionnaire-2 Score 1 06/21/2023 Comments Unknown Sex and Gender Information Value Date Recorded Sex Assigned at Not on file Legal Sex Female 6:56 PM EDT Gender Identity Not on file Sexual Orientation Not on file Last Filed Vital Signs Vital Sign Reading Time Taken Comments Blood Pressure 129/82 06/21/2023 11:12 AM EDT Pulse 72 06/21/2023 11:12 AM EDT Temperature 36.7 C (98 F) 06/21/2023 11:12 AM EDT Respiratory Rate 16 06/21/2023 11:12 AM EDT Oxygen Saturation 96% 05/19/2021 1:21 PM EDT Inhaled Oxygen Concentration - - Weight 98.9 kg (218 lb 0.6 oz) 06/21/2023 11:12 AM EDT Height 165.1 cm (5' 5 ) 06/21/2023 11:12 AM EDT Body Mass Index 36.28 06/21/2023 11:12 AM EDT Plan of Treatment Health Maintenance Due Date Last Done Comments [facility]-HIV Screening 1973 [facility]-Hepatitis C Screening 1973 [facility]-Infant/Child/Adol SDOH Screenings 1973 [facility]- SDOH Screenings 1991 [facility]-Adult SDOH Screenings 1991 [facility]-DTaP,Tdap,and Td Vaccine s (1 - Tdap) 01/04/1992 [facility]-Pap Smear 1994 [facility]-Cervical Cancer Screening 2003 [facility]-HPV/Cotest 2003 CT Colonography 2018 Colonoscopy 2018 FIT-DNA 2018 FIT 2018 FOBT 2018 Sigmoidoscopy 2018 [facility]-Colorectal Cancer Screening 2018 [facility]-Breast Cancer Screening 2023 [facility]-Pneumococcal Vaccine: 50 + Years (1 of 1 - PCV) 2023 [facility]-Zoster Vaccines (1 of 2) 2023 FCQ-BTBON-00 Vaccine (2 - season) 2024 12/02/2020 [facility]-Depression Screening 06/21/2024 06/21/2023 [facility]-Hepatitis B Vaccines Completed 999, 12/23/1998, 11/11/1998 [facility]-Obesity Intervention Completed 06/21/2023 [facility]-Influenza Vaccine Completed 06/22/2024 HPV Vaccines Aged Out No longer eligi ble based on patient's age to complete this topic [facility]-HIB Vaccines Aged Out No longer e ligible based on patient's age to complete this topic [facility]-Hepatitis A Vaccines Aged Out No longer eligible based on patient's age to complete this topic [facility]-IPV Vaccines Aged Out No longer e ligible based on patient's age to complete this topic [facility]-Rotavirus Vaccines Aged Out No lo nger eligible based on patient's age to complete this topic Insurance ANTHEM Care Teams Co Founder And Chief Strategy Officer Relationship Specialty Start Date End Date Meliza Liriano APRN [address] [place] [address] PCP - General 01/08/21 Anup Sam MD [address] [place] [address] Surgeon Transplant Surgery 03/01/21 Sharon [place] [address] Surgical Navigator Transplant Surgery 03/01/21 Karolina Mckay, RN [facility] [address] [place] [address] Surgical Navigator Transplant Surgery 05/11/21 [place] [address] [place] [address] Referring Physician Gastroenterology 11/05/21
== END 2025-01-31 23:59 | disposition home or self-care (01) ==
LOC: RAD 14:45
PROVIDERS: PCP Nurse Practitioner Family; Visit Provider Nurse Practitioner Family
DX: N60.01 Solitary cyst of right breast (principal); N63.11 Unspecified lump in the right breast, upper outer quadrant; R92.333 Mammographic heterogeneous density, bilateral breasts
CPT/HCPCS: 76641; 77061; 77065; G0279